=== PATIENT | female | born 1960 | race Caucasian/White ===

== ENCOUNTER 2017-02-18 10:09 | Emergency (ER) | payer BC, SELFPAY ==
[2017-02-18 10:23] VITALS: BP 151/90; PULSE 90; RESP 18; TEMP 36.8; O2SAT 98; BMI 24.0
--- NOTE | 2017-02-18 11:12 | HMH.EDUTC ---
[facility] [place] Clinical Impression: Hypokalemia Disposition: Still a Patient Condition on Discharge: Good Time of Disposition: 12:20 (transfer to ER) Medical Decision Making Vital Signs: 02/18/17 10:23 Temperature 98.2 F Temperature Source Oral Pulse Rate [Left] 90 Respiratory Rate 18 Blood Pressure [Right Arm] 151/90 Blood Pressure Mean [Right Arm] 110 Blood Pressure Source [Right Arm] Automatic Cuff Blood Pressure Position [Right Arm] Sitting 02 Sat by Pulse Oximetry 98 Oxygen Delivery Method Room Air - Lab Data Lab Results 02/18/17 11:45: WBC 4.2 L, RBC 4.49, Hgb 13.9, Hct 41.7, MCV 92.7, MCH 30.9, MCHC 33.4, RDW 15.5, Plt Count 101 L, MPV 8.2, Neut % (Auto) 62.7, Lymph % (Auto) 29.6, Early % (Auto) 6.6, Eos % (Auto) 0.8, Baso % (Auto) 0.2, Neut # (Auto) 2.7, Lymph # (Auto) 1.3, Early # (Auto) 0.3, Eos # (Auto) 0.0, Baso # (Auto) 0.0 02/18/17 11:45: Sodium 138, Potassium 2.9 L*, Chloride 102, Carbon Dioxide 28, Anion Gap 10.9, BUN 9, Creatinine 0.73, Estimated Creat Clear 87, Estimated GFR > 60, Est GFR ( Amer) > 60, Glucose 125 H Result diagrams: 02/18/17 11:45 02/18/17 11:45 - Radiology Data #1 Image(s): Chest Image Reviewed: Yes I have reviewed radiologist's interpretation Preliminary Findings: Normal/NAD - Physician Consults Physician Consulted: Dr. Saenz, ER Time: 12:17 Reason -: Pt condition (transfer to ER) Comment/Response: Spoke to Dr. Saenz. Willing to evaluate further in ER. Bed 10 available. Pt assisted over by Juliana [facility] micaela - Abiel Inquiry Pt receiving controlled substance: No [facility] [place] - General Stated complaint: SOA Time Seen by Provider: 02/18/17 11:12 Mode of Arrival: Ambulatory Source of Information: Patient Limitations: No Limitations Description of Symptoms (Recalled from Triage Doc. by RN): COUGH, CONGESTION X1 WK HEENT Symptoms (Recalled from RN notes): Yes Resp Symptoms (Recalled from RN notes): No Skin Symptoms (Recalled from RN notes): No MS Symptoms (Recalled from RN notes): No Functional Status (Recalled from RN notes): N - History of Present Illness Provider Complaint: c/o persistant nausea and diarrhea x 1 week and now cough w/ pain in left side of chest. I hope I haven't developed pneumonia . Nonsmoker. Nonprod cough. Reports vomiting has improved but persistant nausea. Difficulty keeping down jello and soup at times still. Diarrhea watery and 5-6 times a day. No blood or mucous. Denies SOA although previously documented. No treatment prior to arrival - Related Data Home Medications Medication Instructions Recorded Confirmed Gabapentin [Gabapentin 400mg Cap] 400 % PO DAILY 02/18/17 02/18/17 Loratadine [Claritin 10mg Tablet] 10 % PO DAILY 02/18/17 02/18/17 Omeprazole [Omeprazole 20mg 20 % PO AC 02/18/17 02/18/17 Capsule] Tramadol HCl [Ultram 50mg Take 0 % PO DAILY 02/18/17 02/18/17 Home Pack (10)] Allergies Allergy/AdvReac Type Severity Reaction Status Date / Time erythromycin base Allergy Unknown Unverified 02/02/17 15:31 [ERYTHROMYCIN BASE] Tetracyclines AdvReac Mild KNOT IN Unverified 02/02/17 15:31 STOMACH - Worker's Comp Is this a Worker's Comp case?: Yes [facility] History I have reviewed the patient's past medical history: Yes Medical History: Reports:: Asthma, Deep Vein Thrombosis, Gastroesophageal Reflux Disease Other Surgeries: Yes: Hysterectomy-Partial, Tubal Ligation - *Social History Smoking Status: Never smoker Alcohol Intake: never - Psychiatric History Expresses thoughts of harming self/others: None Suicide Plan Description: No Plan *Family Hx:: No significant family history ROS Obtained: Yes All systems reviewed & no additional complaints except as noted - Constitutional Reports anorexia, Reports chills, Reports fatigue, Denies body ache(s), Denies fever(s) - Eyes Denies change in vision - ENT Denies ear discharge, Denies ear pain, Denies nasal congestion, Denies nasal d
--- NOTE | 2017-02-18 11:17 | XR_ITS ---
XR chest 2V HISTORY: ITS.REASON: cough and chest tightness ORDERING PHYSICIAN: Barrera Pham PATIENT AGE: 56 years COMPARISON: 03/25/2016 FINDINGS: The cardiomediastinal silhouette and pulmonary vascularity are within normal limits. The lungs are clear without infiltrates, suspicious nodules, or pleural effusions. No acute bony abnormalities. IMPRESSION: Negative chest, no acute finding
[2017-02-18 11:58] LABS: Anion Gap 10.9 mEq/L (5-15); Blood Urea Nitrogen 9 mg/dL (7-18); Carbon Dioxide 28 mmol/L (21.0-32.0); Chloride 102 mmol/L (98-107); Creatinine Clearance Estimated 87 mg/ml (0-300); Creatinine,Serum 0.73 mg/dL (0.55-1.02); Estimated Glomerular Filt Rate > 60 ml/min (>60); GFR (African American) > 60 ML/MIN (>60); Glucose 125 mg/dL (74-106); Sodium 138 mmol/L (136-145)
[2017-02-18 12:01] LABS: Potassium 2.9 mmoL/L (3.5-5.1)
[2017-02-18 12:11] LABS: Basophils % 0.2 % (0.1-2.0); Eosinophils % 0.8 % (0.1-12.0); Hematocrit 41.7 % (37.0-47.0); Hemoglobin 13.9 g/dL (12.2-16.2); Lymphocytes # 1.3 K/mm3 (0.7-4.5); Lymphocytes % 29.6 K/mm3 (10-50); Mean Corpuscular HGB Conc 33.4 g/dL (31.8-35.4); Mean Corpuscular Hemoglobin 30.9 pg (27.0-31.2); Mean Corpuscular Volume 92.7 fl (81-99); Mean Platelet Volume 8.2 fl (7.4-10.4); Monocytes # 0.3 K/mm3 (0.1-1.0); Monocytes % 6.6 % (1.7-9.3); Neutrophils # 2.7 K/mm3 (1.8-7.8); Neutrophils % 62.7 % (37.0-80.0); Platelet Count 101 K/mm3 (142-424); Red Blood Count 4.49 M/mm3 (4.20-5.40); Red Cell Distribution Width 15.5 % (11.5-17.5); White Blood Count 4.2 K/mm3 (4.8-10.8)
[2017-02-18 12:40] VITALS: BP 155/98; PULSE 89; RESP 18; TEMP 36.9; O2SAT 98; BMI 24.0
--- NOTE | 2017-02-18 13:59 | HMH.EDNVD ---
ED Disposition Clinical Impression: Hypokalemia, Atypical chest pain, Diarrhea, Gastroenteritis Disposition: Home, Self-Care Condition on Discharge: Good Instructions: DI for Diarrhea and Traveler's Diarrhea -- Adult Additional Instructions: See your family practitioner to recheck potassium level, push Gatorade, cardiac work up looks good today and we replaced potassium by mouth. Recommend Imodium over the counter as needed for diarrhea. Referrals: Roger Soto MD [Primary Care Provider] - Time of Disposition: 15:48 - Critical Care Critical Care Time: No Attestation: On 02/18/17, the high probability of a clinically significant, sudden or life threatening deterioration of the following system(s) required my full and direct attention, intervention and personal management. The time I documented below is in addition to time spent performing reported procedures but includes the following listed in this critical care notation. Medical Decision Making Vital Signs: 02/18/17 10:23 02/18/17 12:40 Temperature 98.2 F 98.4 F Temperature Source Oral Oral Pulse Rate [Left] 90 89 Respiratory Rate 18 18 Blood Pressure [Right Arm] 151/90 155/98 Blood Pressure Mean [Right Arm] 110 117 Blood Pressure Source [Right Arm] Automatic Cuff Automatic Cuff Blood Pressure Position [Right Arm] Sitting Sitting 02 Sat by Pulse Oximetry 98 98 Oxygen Delivery Method Room Air Room Air - Lab Data Lab results reviewed: Yes: I reviewed the patient's lab results. Lab Results 02/18/17 11:45: WBC 4.2 L, RBC 4.49, Hgb 13.9, Hct 41.7, MCV 92.7, MCH 30.9, MCHC 33.4, RDW 15.5, Plt Count 101 L, MPV 8.2, Neut % (Auto) 62.7, Lymph % (Auto) 29.6, [place] % (Auto) 6.6, Eos % (Auto) 0.8, Baso % (Auto) 0.2, Neut # (Auto) 2.7, Lymph # (Auto) 1.3, [place] # (Auto) 0.3, Eos # (Auto) 0.0, Baso # (Auto) 0.0 02/18/17 11:45: Sodium 138, Potassium 2.9 L*, Chloride 102, Carbon Dioxide 28, Anion Gap 10.9, BUN 9, Creatinine 0.73, Estimated Creat Clear 87, Estimated GFR > 60, Est GFR ( Amer) > 60, Glucose 125 H 02/18/17 11:45: Troponin I < 0.02 Result diagrams: 02/18/17 11:45 02/18/17 11:45 Orders (Tests/Meds): ED MEDICATIONS Discontinued Medications Generic Name Dose Route Start Last Admin Trade Name Freq PRN Reason Stop Dose Admin Sodium Chloride 1,000 mls @ 999 mls/hr 02/18/17 13:30 02/18/17 13:21 Sod Chloride 0.9% 1000ml Bag IV 02/18/17 14:30 999 mls/hr .Q1H1M FLORIN Administration Ondansetron HCl 4 mg 02/18/17 13:18 02/18/17 13:21 Zofran 4mg/2ml Vial IV 02/18/17 13:19 4 mg ONCE ONE Administration Potassium Chloride/Water 20 meq 02/18/17 13:30 Potassium Chloride 20meq/100ml Ivpb IV 02/18/17 13:31 ONCE ONE Potassium replaced IV and EKG checked. Noted to be normal. Troponin normal - Radiology Data #1 Image(s): Chest Image Reviewed: Yes I reviewed the patient's radiology results, Yes I have reviewed radiologist's interpretation Preliminary Findings: Normal/NAD, No Infiltrates Seen, Normal Lung Inflation Rudolph - ECG Data Tracing #1 NSR nl QTc occ APC no ST changes noted no hypertrophy. T waves normal with K at 2.9 - Abiel Inquiry Pt receiving controlled substance: No Nausea/Vomiting/Diarrhea HPI - General Chief complaint: Nausea/Vomiting/Diarrhea Stated complaint: SOA Time Seen by Provider: 02/18/17 11:12 Mode of Arrival: Ambulatory Source of Information: Patient Limitations: No Limitations Description of Symptoms (Recalled from ER Triage Doc. by RN): COUGH, CONGESTION X1 WK - History of Present Illness HPI Narrative: Patient states that 8 days ago she had vomiting which lasted 4 days. It was followed by diarrhea, which she has had for 4 days. She has a history of hypokalemia, and is not currently taking potassium as she is out. She also reports some very mild left-sided chest pain 3 days ago and none today. He has had a little bit of congestion. Fever today. No blood from a
--- NOTE | 2017-02-18 14:03 | ED_ITS ---
ED Disposition Clinical Impression: Hypokalemia, Atypical chest pain, Diarrhea, Gastroenteritis Disposition: Home, Self-Care Condition on Discharge: Good Instructions: DI for Diarrhea and Traveler's Diarrhea -- Adult Additional Instructions: See your family practitioner to recheck potassium level, push Gatorade, cardiac work up looks good today and we replaced potassium by mouth. Recommend Imodium over the counter as needed for diarrhea. Referrals: Roger Soto MD [Primary Care Provider] - Time of Disposition: 15:48 - Critical Care Critical Care Time: No Attestation: On 02/18/17, the high probability of a clinically significant, sudden or life threatening deterioration of the following system(s) required my full and direct attention, intervention and personal management. The time I documented below is in addition to time spent performing reported procedures but includes the following listed in this critical care notation. Medical Decision Making Vital Signs: 02/18/17 10:23 02/18/17 12:40 Temperature 98.2 F 98.4 F Temperature Source Oral Oral Pulse Rate [Left] 90 89 Respiratory Rate 18 18 Blood Pressure [Right Arm] 151/90 155/98 Blood Pressure Mean [Right Arm] 110 117 Blood Pressure Source [Right Arm] Automatic Cuff Automatic Cuff Blood Pressure Position [Right Arm] Sitting Sitting 02 Sat by Pulse Oximetry 98 98 Oxygen Delivery Method Room Air Room Air - Lab Data Lab results reviewed: Yes: I reviewed the patient's lab results. Lab Results 02/18/17 11:45: WBC 4.2 L, RBC 4.49, Hgb 13.9, Hct 41.7, MCV 92.7, MCH 30.9, MCHC 33.4, RDW 15.5, Plt Count 101 L, MPV 8.2, Neut % (Auto) 62.7, Lymph % (Auto ) 29.6, Saline % (Auto) 6.6, Eos % (Auto) 0.8, Baso % (Auto) 0.2, Neut # (Auto) 2.7, Lymph # (Auto) 1.3, Saline # (Auto) 0.3, Eos # (Auto) 0.0, Baso # (Auto) 0.0 02/18/17 11:45: Sodium 138, Potassium 2.9 L*, Chloride 102, Carbon Dioxide 28, Anion Gap 10.9, BUN 9, Creatinine 0.73, Estimated Creat Clear 87, Estimated GFR > 60, Est GFR ( Amer) > 60, Glucose 125 H 02/18/17 11:45: Troponin I < 0.02 Result diagrams: 02/18/17 11:45 02/18/17 11:45 Orders (Tests/Meds): ED MEDICATIONS Discontinued Medications Generic Name Dose Route Start Last Admin Trade Name Freq PRN Reason Stop Dose Admin Sodium Chloride 1,000 mls @ 999 mls/hr 02/18/17 13:30 02/18/17 13:21 Sod Chloride 0.9% 1000ml Bag IV 02/18/17 14:30 999 mls/hr .Q1H1M FLORIN Administration Ondansetron HCl 4 mg 02/18/17 13:18 02/18/17 13:21 Zofran 4mg/2ml Vial IV 02/18/17 13:19 4 mg ONCE ONE Administration Potassium Chloride/Water 20 meq 02/18/17 13:30 Potassium Chloride 20meq/100ml Ivpb IV 02/18/17 13:31 ONCE ONE Potassium replaced IV and EKG checked. Noted to be normal. Troponin normal - Radiology Data #1 Image(s): Chest Image Reviewed: Yes I reviewed the patient's radiology results, Yes I have reviewed radiologist's interpretation Preliminary Findings: Normal/NAD, No Infiltrates Seen, Normal Lung Inflation Rudolph - ECG Data Tracing #1 NSR nl QTc occ APC no ST changes noted no hypertrophy. T waves normal with K at 2.9 - Abiel Inquiry Pt receiving controlled substance: No Nausea/Vomiting/Diarrhea HPI - General Chief complaint: Nausea/Vomiting/Diarrhea Stated complaint: SOA Time Seen by Provider:
[2017-02-18 15:15] LABS: Troponin I < 0.02 ng/ml (0.00-0.06)
[2017-02-18 16:03] VITALS: BP 128/78; PULSE 82; RESP 18; TEMP 37; O2SAT 96
== END 2017-02-18 16:05 | disposition home or self-care (01) ==
LOC: UTC 12:25 → ER 12:32
PROVIDERS: Nurse Practitioner Family; Emergency Provider Emergency Medicine; Family Provider Physician Assistant; PCP Emergency Medicine
DX: K52.9 Noninfective gastroenteritis and colitis, unspecified (principal); E87.6 Hypokalemia; K21.9 Gastro-esophageal reflux disease without esophagitis; J45.909 Unspecified asthma, uncomplicated; Z88.1 Allergy status to other antibiotic agents
CPT/HCPCS: 36415; 71046; 80048; 84484; 85025; 93005; 93041; 96367; 96375; 99283; J2405

== ENCOUNTER → 2017-03-10 11:13 | Outpatient (REF) | payer BC, SELFPAY ==
[2017-03-10 13:57] LABS: Anion Gap 15.5 mEq/L (5-15); Blood Urea Nitrogen 14 mg/dL (7-18); Carbon Dioxide 26 mmol/L (21.0-32.0); Chloride 101 mmol/L (98-107); Creatinine,Serum 0.69 mg/dL (0.55-1.02); Estimated Glomerular Filt Rate 88 ml/min (>60); GFR (African American) 107 ML/MIN (>60); Sodium 139 mmol/L (136-145)
[2017-03-10 14:35] LABS: Glucose 129 mg/dL (74-106)
[2017-03-10 14:41] LABS: Potassium 3.5 mmoL/L (3.5-5.1)
== END ==
LOC: LAB 11:13
PROVIDERS: Visit Provider Physician Assistant
DX: E87.6 Hypokalemia (principal)
CPT/HCPCS: 80048

== ENCOUNTER → 2017-03-17 08:14 | Outpatient (CLI) | payer BC, SELFPAY ==
--- NOTE | 2017-03-17 08:21 | US_ITS ---
US gallbladder HISTORY: Vomiting, right upper quadrant pain ITS.REASON: RUQ pain ORDERING PHYSICIAN: Teo John MD PATIENT AGE: 56 years COMPARISON: None FINDINGS: PANCREAS: Unremarkable. No obvious mass or abnormal fluid collection. No ductal dilatation LIVER: No focal liver lesions demonstrated. Homogeneous echogenicity. No intrahepatic biliary ductal dilatation evident RIGHT KIDNEY: Unremarkable. Normal size and echogenicity. No hydronephrosis GALLBLADDER: No gallstones, gallbladder wall thickening, pericholecystic fluid, or biliary dilatation. IMPRESSION: Negative gallbladder/right upper quadrant ultrasound
== END ==
PROVIDERS: PCP Physician Assistant; Visit Provider Surgery
DX: K80.20 Calculus of gallbladder without cholecystitis without obstruction (principal)
CPT/HCPCS: 76705

== ENCOUNTER 2017-04-05 18:33 | Emergency (ER) | payer BC, SELFPAY ==
[2017-04-05 18:35] VITALS: BP 163/112; PULSE 129; RESP 20; O2SAT 97; BMI 24.0
--- NOTE | 2017-04-05 18:43 | PC.ADMIT ---
[id number] [facility] Admission Note: The patient,Brina Berg,56 y/o, was given written information regarding hospital policies, unit procedures and contact persons. Patient's smoking status: Never smoker.
--- NOTE | 2017-04-05 18:51 | HMH.EDGENADL ---
ED Disposition Condition on Discharge: Fair Time of Disposition: 20:25 - Critical Care Critical Care Time: No <Kandis Moe - Last Filed: 04/05/17 20:23> <Roger Soto - Last Filed: 04/05/17 21:09> Clinical Impression: Acute pancreatitis due to calculus of common bile duct Cholelithiasis Qualifiers: Cholelithiasis location: gallbladder and bile duct Cholecystitis presence: with cholecystitis Cholecystitis acuity: acute Biliary obstruction: without biliary obstruction Qualified Code(s): K80.62 - Calculus of gallbladder and bile duct with acute cholecystitis without obstruction Disposition: Xfer Critical Access Hosp Additional Instructions: Discussed with pt the need to transfer and accepted at [facility] and discussed with dr padilla and dr clarke Referrals: Wendy Diaz PA [Primary Care Provider] - Attestation: On 04/05/17, the high probability of a clinically significant, sudden or life threatening deterioration of the following system(s) required my full and direct attention, intervention and personal management. The time I documented below is in addition to time spent performing reported procedures but includes the following listed in this critical care notation. Medical Decision Making - Medical Records Medical records reviewed: Yes: I reviewed the patient's medical records. - Lab Data Lab results reviewed: Yes: I reviewed the patient's lab results. Result diagrams: 04/05/17 18:30 04/05/17 18:30 - CT Data CT Scan: Abdomen, Pelvis Time Received: 19:[address] Reviewed: Yes: I have reviewed the patient's CT results, I discussed the CT results w/the radiologist, I have viewed the radiologist's interpretation - Abiel Inquiry Pt receiving controlled substance: Yes Abiel was queried for this patient: No Reason not queried -: Emergent pt cond-no time Risks and benefits of using a controlled substance: were discussed with pt by me <Kandis Moe - Last Filed: 04/05/17 20:23> - Lab Data Result diagrams: 04/05/17 18:30 04/05/17 18:30 <Roger Soto - Last Filed: 04/05/17 21:09> Vital Signs: 04/05/17 18:35 04/05/17 19:49 04/05/17 21:00 Temperature 99.8 F H 98.9 F Temperature Source Oral Oral Pulse Rate [Right Radial] 129 H 125 H 130 H Respiratory Rate 20 20 20 Blood Pressure [Right Arm] 163/112 137/69 129/63 Blood Pressure Mean [Right Arm] 129 91 85 Blood Pressure Source [Right Arm] Automatic Cuff Automatic Cuff Automatic Cuff Blood Pressure Position [Right Arm] Supine Supine Supine 02 Sat by Pulse Oximetry 97 97 96 Oxygen Delivery Method Room Air Room Air Room Air - Lab Data Lab Results 04/05/17 18:30: WBC 11.0 H, RBC 5.27, Hgb 16.8 H, Hct 48.7 H, MCV 92.3, MCH 31.8 H, MCHC 34.5, RDW 16.0, Plt Count 167, MPV 8.5, Neut % (Auto) 85.5 H, Lymph % (Auto) 8.5 L, [place] % (Auto) 5.8, Eos % (Auto) 0.2, Baso % (Auto) 0.0 L, Neut # (Auto) 9.4 H, Lymph # (Auto) 0.9, [place] # (Auto) 0.6, Eos # (Auto) 0.0, Baso # (Auto) 0.0, Total Counted 100, Neutrophils % (Manual) 86 H, Band Neutrophils % 2.0, Lymphocytes % (Manual) 8 L, Monocytes % (Manual) 3, Metamyelocytes % 1.0, Platelet Estimate Normal, RBC Morphology Normal 04/05/17 18:30: Sodium 135 L, Potassium 3.7, Chloride 96 L, Carbon Dioxide 22, Anion Gap 20.7 H, BUN 16, Creatinine 1.13 H, Estimated Creat Clear 56, Estimated GFR 50 L, Est GFR ( Amer) 60, Glucose 187 H, Calcium 8.1 L, Total Bilirubin 1.2 H, AST 126 H, ALT 62, Alkaline Phosphatase 118 H, Total Protein 7.9, Albumin 4.1, Globulin 3.8 H, Albumin/Globulin Ratio 1.1, Amylase 406 H*, Lipase 6496 H Orders (Tests/Meds): ED MEDICATIONS Discontinued Medications Generic Name Dose Route Start Last Admin Trade Name Freq PRN Reason Stop Dose Admin Sodium Chloride 1,000 mls @ 999 mls/hr 04/05/17 19:00 04/05/17 18:54 Sod Chlor 0.9% 1000ml Bag IV 04/05/17 20:00 999 mls/hr .Q1H1M FLORIN Administration Sodium Chloride 1,000 mls @ 999 mls/hr 04/05/17 20:00
--- NOTE | 2017-04-05 18:51 | CT_ITS ---
CT abdomen pelvis wo con Ordering Physician: Kandis Moe MD HISTORY: ITS.REASON: abdominal pain Severe abdominal pain. Generalized.. Age: 56 years: Female TECHNIQUE: Helical CT scanning performed through abdomen and pelvis. No oral nor IV contrast utilized. Sagittal axial coronal reconstructions on CT workstation COMPARISON :Previous CT abdomen and pelvis 11-29. FINDINGS Lung bases, clear. Heart normal size Abdomen/pelvis. Lack of oral and IV contrast decreases sensitivity. Prominent acute pancreatitis findings... Prominent stranding and fluid extends from the margins of the enlarged edematous appearing pancreas. There is focal fluid collection lateral to the tail the pancreas and overlying the left kidney, with fluid outlining Gerota's fascia and extending along the left paracolic gutter.. Edema & inflammatory fluid seen throughout the root of the mesentery Fluid is seen tracking anteriorly through mesentery with generous focal fluid collection overlying the omentum RUQ abdomen,. This irregular focal fluid collection overlies the hepatic flexure right colon (axial image 62.) & measuring 5.2cm transverse x 2.1 cm & over AP 4.6 cm height.... At this point would attribute to phlegmonous inflammatory fluid collection but will require follow-up to exclude developing pseudocyst. Doubt hemorrhage focus given its density Fluid is seen extending to Morison's pouch overlying the right Gerota's fascia extending along the right paracolic gutter. Fluid also seen particularly evident medial to the gallbladder and surrounding gallbladder neck. Thickened appearance of descending duodenum.. Minimal fluid posterior pelvis/pelvic basin Liver. No focal lesions. No biliary ductal dilatation. Diffuse fatty infiltration of liver with mild hepatomegaly. Small 9 mm hepatic cyst medial right lobe. No change and Stable since 2015.q . Vague low-density inferior margin of the liver, just anterior to the gallbladder fossa is a stable feature since 2015 as well. Small cyst or focal fatty change. Gallbladder. Hydropic Distended somewhat tense appearing gallbladder. Again note the fluid most evident about the medial medial aspect & most likely related to the pancreatitis. . Large bowel. There is some wall thickening of the transverse colon particularly towards the hepatic flexure which may reflect the generalized regional inflammation.. May be a few diverticula in sigmoid colon no diverticulitis. Appendix visualized and normal posterior to the right colon .. Small bowel with scattered air-fluid levels and generous fluid., MayReflect ileus Kidneys. No obstruction. Small stable calculus midportion left kidney. Less than 3 mm size possible fat-containing right inguinal hernia no bowel loops. No inflammation here otherwise. IMPRESSION: 1. Severe appearing ACUTE PANCREATITIS. Diffuse edematous appearing pancreas, with irregular margin & stranding into fat surrounding pancreas Fluid extends from pancreas, with focal fluid collection along left paracolic gutter. Minimal fluid pelvis basin. Inflammatory stranding throughout the mesentery with fluid collecting along Morison's pouch. Generous fluid surrounding the neck of the gallbladder. Edematous changes throughout the mesentery. Additional notable focal irregular fluid collection, anterior RUQ, anterior to hepatic flexure. Most likely phlegmonous inflammatory fluid collection. This warrants follow-up to evaluate for possible developing pseudocyst. 2. Distended hydropic appearing gallbladder. Appears merely be secondary to pancreatic inflammation. , But will require follow-up to evaluate for cholecystitis or a calculus cholecystitis 3. Other observations in text
--- NOTE | 2017-04-05 18:56 | ED_ITS ---
ED Disposition Condition on Discharge: Fair Time of Disposition: 20:25 - Critical Care Critical Care Time: No <Kandis Moe - Last Filed: 04/05/17 20:23> <Roger Soto - Last Filed: 04/05/17 21:09> Clinical Impression: Acute pancreatitis due to calculus of common bile duct Cholelithiasis Qualifiers: Cholelithiasis location: gallbladder and bile duct Cholecystitis presence: with cholecystitis Cholecystitis acuity: acute Biliary obstruction: without biliary obstruction Qualified Code(s): K80.62 - Calculus of gallbladder and bile duct with acute cholecystitis without obstruction Disposition: Xfer Critical Access Hosp Additional Instructions: Discussed with pt the need to transfer and accepted at [facility] and discussed with dr padilla and dr clarke Referrals: Wendy Diaz PA [Primary Care Provider] - Attestation: On 04/05/17, the high probability of a clinically significant, sudden or life threatening deterioration of the following system(s) required my full and direct attention, intervention and personal management. The time I documented below is in addition to time spent performing reported procedures but includes the following listed in this critical care notation. Medical Decision Making - Medical Records Medical records reviewed: Yes: I reviewed the patient's medical records. - Lab Data Lab results reviewed: Yes: I reviewed the patient's lab results. Result diagrams: 04/05/17 18:30 04/05/17 18:30 - CT Data CT Scan: Abdomen, Pelvis Time Received: 19:[address] Reviewed: Yes: I have reviewed the patient's CT results, I discussed the CT results w/the radiologist, I have viewed the radiologist's interpretation - Abiel Inquiry Pt receiving controlled substance: Yes Abiel was queried for this patient: No Reason not queried -: Emergent pt cond-no time Risks and benefits of using a controlled substance: were discussed with pt by me <Kandis Moe - Last Filed: 04/05/17 20:23> - Lab Data Result diagrams: 04/05/17 18:30 04/05/17 18:30 <Roger Soto - Last Filed: 04/05/17 21:09> Vital Signs: 04/05/17 18:35 04/05/17 19:49 04/05/17 21:00 Temperature 99.8 F H 98.9 F Temperature Source Oral Oral Pulse Rate [Right Radial] 129 H 125 H 130 H Respiratory Rate 20 20 20 Blood Pressure [Right Arm] 163/112 137/69 129/63 Blood Pressure Mean [Right Arm] 129 91 85 Blood Pressure Source [Right Arm] Automatic Cuff Automatic Cuff Automatic Cuff Blood Pressure Position [Right Arm] Supine Supine Supine 02 Sat by Pulse Oximetry 97 97 96 Oxygen Delivery Method Room Air Room Air Room Air - Lab Data Lab Results 04/05/17 18:30: WBC 11.0 H, RBC 5.27, Hgb 16.8 H, Hct 48.7 H, MCV 92.3, MCH 31.8 H, MCHC 34.5, RDW 16.0, Plt Count 167, MPV 8.5, Neut % (Auto) 85.5 H, Lymph % (Auto) 8.5 L, [place] % (Auto) 5.8, Eos % (Auto) 0.2, Baso % (Auto) 0.0 L, Neut # (Auto) 9.4 H, Lymph # (Auto) 0.9, [place] # (Auto) 0.6, Eos # (Auto) 0.0, Baso # (Auto) 0.0, Total Counted 100, Neutrophils % (Manual) 86 H, Band Neutrophils % 2.0, Lymphocytes % (Manual) 8 L, Monocytes % (Manual) 3, Metamyelocytes % 1.0, Platelet Estimate Normal, RBC Morphology Normal 04/05/17 18:30: Sodium 135 L, Potassium 3.7, Chloride 96 L, Carbon Dioxide 22, Anion Gap 20.7 H, BUN 16, Creatinine 1.13 H, Estimated Creat Clear 56, Estimated GFR 50 L, Est GFR ( Amer) 60, Glucose 187 H, Calcium 8.1 L, Total Bilirubin 1.2 H, AST 126 H, ALT 62, Alkaline Phosphatase 118 H, Total
[2017-04-05 18:59] LABS: Eosinophils % 0.2 % (0.1-12.0); Hematocrit 48.7 % (37.0-47.0); Hemoglobin 16.8 g/dL (12.2-16.2); Lymphocytes # 0.9 K/mm3 (0.7-4.5); Lymphocytes % 8.5 K/mm3 (10-50); Mean Corpuscular HGB Conc 34.5 g/dL (31.8-35.4); Mean Corpuscular Hemoglobin 31.8 pg (27.0-31.2); Mean Corpuscular Volume 92.3 fl (81-99); Mean Platelet Volume 8.5 fl (7.4-10.4); Monocytes # 0.6 K/mm3 (0.1-1.0); Monocytes % 5.8 % (1.7-9.3); Neutrophils # 9.4 K/mm3 (1.8-7.8); Neutrophils % 85.5 % (37.0-80.0); Platelet Count 167 K/mm3 (142-424); Red Blood Count 5.27 M/mm3 (4.20-5.40)
[2017-04-05 19:01] LABS: MANUAL DIFFERENTIAL MANUAL DIFFERENTIAL (MANUAL DIFF)
[2017-04-05 19:07] LABS: Alanine Aminotransferase 62 U/L (12-78); Albumin Level 4.1 gm/dL (3.4-5.0); Albumin/Globulin Ratio 1.1 (1.1-1.8); Alkaline Phosphatase 118 U/L (46-116); Amylase 406 U/L (25-125); Anion Gap 20.7 mEq/L (5-15); Bilirubin,Total 1.2 mg/dL (0.2-1.0); Blood Urea Nitrogen 16 mg/dL (7-18); Calcium 8.1 mg/dL (8.5-10.1); Carbon Dioxide 22 mmol/L (21.0-32.0); Chloride 96 mmol/L (98-107); Creatinine Clearance Estimated 56 mL/min (0-300); Creatinine,Serum 1.13 mg/dL (0.55-1.02); Estimated Glomerular Filt Rate 50 ml/min (>60); GFR (African American) 60 ML/MIN (>60); Globulin 3.8 gm/dl (1.3-3.2); Glucose 187 mg/dL (74-106); Lipase 6496 u/L (73-393); Sodium 135 mmol/L (136-145); Total Protein,Serum 7.9 gm/dL (6.4-8.2)
[2017-04-05 19:08] LABS: Aspartate Amino Transferase 126 U/L (15-37); Potassium 3.7 mmoL/L (3.5-5.1)
[2017-04-05 19:49] VITALS: BP 137/69; PULSE 125; RESP 20; TEMP 37.7; O2SAT 97
[2017-04-05 20:00] LABS: Lymphocytes % 8 % (10-50); Monocytes % 3 % (2-9); Neutrophils % 86 % (42-76); Platelet Estimate Normal; Total Cells Counted 100
[2017-04-05 20:01] LABS: RBC Morphology Normal
--- NOTE | 2017-04-05 20:36 | XR_ITS ---
XR KUB CLINICAL INDICATION: Evaluate NG tube placement ITS.REASON: NG tube ORDERING PHYSICIAN: Kandis Moe MD PATIENT AGE: 56 years COMPARISON: None FINDINGS: Nasogastric tube tip is in region of the body the stomach. There are gas-filled loops of small and large bowel. IMPRESSION: NG tube tip in region of the body the stomach
--- NOTE | 2017-04-05 20:54 | PC.NURSE ---
Addendum entered by Ellie Wiseman RN 04/05/17 21:00: Original Note: DR MONTAÑO ACCEPTED FROM [facility] FOR PATIENT TRANSFER.
--- NOTE | 2017-04-05 20:56 | PC.NURSE ---
Addendum entered by Ellie Wiseman RN 04/05/17 21:00: [facility] AGREED TO ACCEPT TRANSFER OF PATIENT Original Note: DR LUJAN ON PHONE WITH DR ROCHA
--- NOTE | 2017-04-05 20:57 | PC.NURSE ---
16 German NG inserted at bedside by Dr. Moe at 2030
[2017-04-05 21:00] VITALS: BP 129/63; PULSE 130; RESP 20; TEMP 37.2; O2SAT 96
--- NOTE | 2017-04-05 21:43 | PC.NURSE ---
Pt requested to be sent to [facility]. [facility] accepted pt.
[2017-04-05 21:54] VITALS: BP 129/63; PULSE 130; RESP 20; TEMP 37.2; O2SAT 96
[2017-04-05 22:13] VITALS: BP 129/63; PULSE 130; RESP 20; TEMP 37.2; O2SAT 96
== END 2017-04-05 22:13 | disposition critical access hospital (66) ==
PROVIDERS: Emergency Provider General Practice; Family Provider Physician Assistant; PCP Physician Assistant
DX: K80.62 Calculus of gallbladder and bile duct with acute cholecystitis without obstruction (principal); K85.80 Other acute pancreatitis without necrosis or infection; J45.909 Unspecified asthma, uncomplicated; K21.9 Gastro-esophageal reflux disease without esophagitis; Z88.1 Allergy status to other antibiotic agents; Z79.899 Other long term (current) drug therapy
CPT/HCPCS: 43760; 74018; 74176; 80053; 82150; 83690; 85007; 85025; 96365; 96366; 96375; 96376; 99284; J2405

== ENCOUNTER → 2017-04-22 10:43 | Outpatient (REF) | payer BC, SELFPAY ==
[2017-04-22 16:58] LABS: White Blood Count 4.5 K/mm3 (4.8-10.8)
[2017-04-22 16:59] LABS: Hematocrit 40.8 % (37.0-47.0); Hemoglobin 12.7 g/dL (12.2-16.2); Red Blood Count 4.02 M/mm3 (4.20-5.40)
[2017-04-22 17:00] LABS: Basophils % 0.7 % (0.1-2.0); Eosinophils % 4.5 % (0.1-12.0); Lymphocytes # 1.4 K/mm3 (0.7-4.5); Lymphocytes % 31.5 K/mm3 (10-50); Mean Corpuscular HGB Conc 31.1 g/dL (31.8-35.4); Mean Corpuscular Hemoglobin 31.6 pg (27.0-31.2); Mean Corpuscular Volume 101.4 fl (81-99); Mean Platelet Volume 9.1 fl (7.4-10.4); Monocytes # 0.3 K/mm3 (0.1-1.0); Monocytes % 7.5 % (1.7-9.3); Neutrophils # 2.5 K/mm3 (1.8-7.8); Neutrophils % 55.8 % (37.0-80.0); Platelet Count 564 K/mm3 (142-424); Red Cell Distribution Width 15.6 % (11.5-17.5)
[2017-04-22 17:01] LABS: Eosinophils # 0.2 K/mm3 (0.0-0.4)
[2017-04-22 19:37] LABS: Alanine Aminotransferase 21 U/L (12-78); Alkaline Phosphatase 88 U/L (46-116); Amylase 99 U/L (25-125); Anion Gap 15.1 mEq/L (5-15); Aspartate Amino Transferase 19 U/L (15-37); Bilirubin,Total 0.2 mg/dL (0.2-1.0); Blood Urea Nitrogen 15 mg/dL (7-18); Calcium 10.2 mg/dL (8.5-10.1); Carbon Dioxide 29 mmol/L (21.0-32.0); Chloride 98 mmol/L (98-107); Chol/HDL Ratio 3.9 (1-3.5); Cholesterol 225 mg/dL (140-200); Creatinine,Serum 0.67 mg/dL (0.55-1.02); Estimated Glomerular Filt Rate 91 ml/min (>60); GFR (African American) 111 ML/MIN (>60); Globulin 3.9 gm/dl (1.3-3.2); Glucose 91 mg/dL (74-106); HDL Cholesterol 57 mg/dL (29-89); LDL Cholesterol 95 mg/dL (0-130); Sodium 136 mmol/L (136-145); T4 (Thyroxine) 7.2 ug/dl (4.7-13.3); Thyroid Stimulating Hormone 2.93 uIU/ml (0.358-3.740); Total Protein,Serum 7.9 gm/dL (6.4-8.2); Triglycerides 365 mg/dL (30-200); VLDL Cholesterol 73 mg/dL (0-40)
[2017-04-22 19:59] LABS: Lipase 653 u/L (73-393); Potassium 6.1 mmoL/L (3.5-5.1)
[2017-04-23 19:23] LABS: Vitamin D 25 Hydroxy 26.9 ng/mL (30.0-100.0)
== END ==
LOC: LAB 10:43
PROVIDERS: Visit Provider Physician Assistant
DX: K85.10 Biliary acute pancreatitis without necrosis or infection (principal)
CPT/HCPCS: 80053; 80061; 82150; 82652; 83690; 84436; 84443; 85025

== ENCOUNTER → 2017-04-26 15:13 | Outpatient (CLI) | payer BC, SELFPAY ==
[2017-04-26 16:09] LABS: Potassium 4.4 mmoL/L (3.5-5.1)
== END ==
PROVIDERS: Visit Provider Physician Assistant
DX: E87.5 Hyperkalemia (principal)
CPT/HCPCS: 36415; 84132

== ENCOUNTER → 2017-06-23 11:05 | Outpatient (REF) | payer BC, SELFPAY ==
[2017-06-23 14:06] LABS: Alanine Aminotransferase 26 U/L (12-78); Albumin Level 4.1 gm/dL (3.4-5.0); Albumin/Globulin Ratio 1.1 (1.1-1.8); Alkaline Phosphatase 82 U/L (46-116); Anion Gap 13.2 mEq/L (5-15); Aspartate Amino Transferase 27 U/L (15-37); Bilirubin,Total 0.3 mg/dL (0.2-1.0); Blood Urea Nitrogen 18 mg/dL (7-18); Calcium 9.5 mg/dL (8.5-10.1); Carbon Dioxide 30 mmol/L (21.0-32.0); Chloride 104 mmol/L (98-107); Creatinine,Serum 0.75 mg/dL (0.55-1.02); Estimated Glomerular Filt Rate 80 ml/min (>60); GFR (African American) 97 ML/MIN (>60); Globulin 3.9 gm/dl (1.3-3.2); Glucose 106 mg/dL (74-106); Potassium 5.2 mmoL/L (3.5-5.1); Sodium 142 mmol/L (136-145)
== END ==
LOC: LAB 11:05
PROVIDERS: Visit Provider Physician Assistant
DX: R53.83 Other fatigue (principal)
CPT/HCPCS: 80053

== ENCOUNTER → 2017-06-25 10:59 | Outpatient (CLI) | payer BC, SELFPAY | PROVIDERS: Visit Provider Emergency Medicine | DX: E87.5 Hyperkalemia (principal) | CPT/HCPCS: 36415; 84132 ==

== ENCOUNTER → 2017-09-22 16:11 | Outpatient (REF) | payer BC, SELFPAY ==
[2017-09-22 18:20] LABS: Basophils % 0.4 % (0.1-2.0); Eosinophils # 0.1 K/mm3 (0.0-0.4); Eosinophils % 1.6 % (0.1-12.0); Hematocrit 40.6 % (37.0-47.0); Hemoglobin 13.4 g/dL (12.2-16.2); Lymphocytes # 1.6 K/mm3 (0.7-4.5); Lymphocytes % 39.4 K/mm3 (10-50); Mean Corpuscular HGB Conc 32.9 g/dL (31.8-35.4); Mean Corpuscular Hemoglobin 29.9 pg (27.0-31.2); Mean Corpuscular Volume 90.9 fl (81-99); Mean Platelet Volume 7.9 fl (7.4-10.4); Monocytes # 0.3 K/mm3 (0.1-1.0); Neutrophils # 2.1 K/mm3 (1.8-7.8); Neutrophils % 50.5 % (37.0-80.0); Platelet Count 166 K/mm3 (142-424); Red Blood Count 4.47 M/mm3 (4.20-5.40); Red Cell Distribution Width 15.1 % (11.5-17.5); White Blood Count 4.1 K/mm3 (4.8-10.8)
[2017-09-22 20:43] LABS: Alanine Aminotransferase 27 U/L (12-78); Albumin Level 4.1 gm/dL (3.4-5.0); Albumin/Globulin Ratio 1.1 (1.1-1.8); Alkaline Phosphatase 90 U/L (46-116); Anion Gap 10.3 mEq/L (5-15); Aspartate Amino Transferase 18 U/L (15-37); Bilirubin,Total 0.3 mg/dL (0.2-1.0); Blood Urea Nitrogen 19 mg/dL (7-18); Calcium 9.6 mg/dL (8.5-10.1); Carbon Dioxide 30 mmol/L (21.0-32.0); Chloride 103 mmol/L (98-107); Creatinine,Serum 0.71 mg/dL (0.55-1.02); Estimated Glomerular Filt Rate 85 ml/min (>60); Free T4 (Free Thyroxine) 0.79 ng/dl (0.76-1.46); GFR (African American) 103 ML/MIN (>60); Globulin 3.6 gm/dl (1.3-3.2); Glucose 82 mg/dL (74-106); Potassium 4.3 mmoL/L (3.5-5.1); Sodium 139 mmol/L (136-145); Thyroid Stimulating Hormone 2.28 uIU/ml (0.358-3.740); Total Protein,Serum 7.7 gm/dL (6.4-8.2)
== END ==
LOC: LAB 16:11
PROVIDERS: Visit Provider Emergency Medicine
DX: R53.83 Other fatigue (principal)
CPT/HCPCS: 80053; 84439; 84443; 85025

== ENCOUNTER → 2017-12-21 13:15 | Outpatient (CLI) | payer BC, SELFPAY ==
[2017-12-21 13:33] LABS: Basophils % 0.6 % (0.1-2.0); Eosinophils # 0.1 K/mm3 (0.0-0.4); Eosinophils % 2.4 % (0.1-12.0); Hemoglobin 13.6 g/dL (12.2-16.2); Lymphocytes # 1.3 K/mm3 (0.7-4.5); Lymphocytes % 37.7 % (10-50); Mean Corpuscular HGB Conc 32.3 g/dL (31.8-35.4); Mean Corpuscular Hemoglobin 30.6 pg (27.0-31.2); Mean Corpuscular Volume 94.7 fl (81-99); Mean Platelet Volume 9.5 fl (7.4-10.4); Monocytes # 0.2 K/mm3 (0.1-1.0); Monocytes % 6.8 % (1.7-9.3); Neutrophils # 1.9 K/mm3 (1.8-7.8); Neutrophils % 52.6 % (37.0-80.0); Platelet Count 175 K/mm3 (142-424); Red Blood Count 4.43 M/mm3 (4.20-5.40); Red Cell Distribution Width 14.2 % (11.5-17.5); White Blood Count 3.5 K/mm3 (4.8-10.8)
[2017-12-21 14:24] LABS: Alanine Aminotransferase 26 U/L (12-78); Albumin Level 4.4 gm/dL (3.4-5.0); Albumin/Globulin Ratio 1.2 (1.1-1.8); Alkaline Phosphatase 75 U/L (46-116); Anion Gap 11.3 mEq/L (5-15); Aspartate Amino Transferase 24 U/L (15-37); Bilirubin,Total 0.4 mg/dL (0.2-1.0); Blood Urea Nitrogen 15 mg/dL (7-18); Carbon Dioxide 30 mmol/L (21.0-32.0); Chloride 104 mmol/L (98-107); Chol/HDL Ratio 2.5 (1-3.5); Cholesterol 241 mg/dL (140-200); Estimated Glomerular Filt Rate 103 ml/min (>60); GFR (African American) 125 ML/MIN (>60); Globulin 3.6 gm/dl (1.3-3.2); Glucose 85 mg/dL (74-106); HDL Cholesterol 98 mg/dL (29-89); LDL Cholesterol 122 mg/dL (0-130); Potassium 4.3 mmoL/L (3.5-5.1); Sodium 141 mmol/L (136-145); T4 (Thyroxine) 7.7 ug/dl (4.7-13.3); Thyroid Stimulating Hormone 3.86 uIU/ml (0.358-3.740); Triglycerides 103 mg/dL (30-200); VLDL Cholesterol 21 mg/dL (0-40)
[2017-12-22 12:41] LABS: Vitamin D 25 Hydroxy 30.4 ng/mL (30.0-100.0)
== END ==
PROVIDERS: PCP Physician Assistant; Visit Provider Physician Assistant
DX: M25.511 Pain in right shoulder (principal); M25.552 Pain in left hip; Z00.00 Encounter for general adult medical examination without abnormal findings; L40.50 Arthropathic psoriasis, unspecified; L40.9 Psoriasis, unspecified; G89.29 Other chronic pain
CPT/HCPCS: 80053; 80061; 82652; 84436; 84443; 85025

== ENCOUNTER → 2018-02-02 09:22 | Outpatient (CLI) | payer BC, SELFPAY ==
[2018-02-02 10:12] LABS: Basophils % 0.7 % (0.1-2.0); Eosinophils # 0.2 K/mm3 (0.0-0.4); Eosinophils % 3.6 % (0.1-12.0); Hematocrit 40.4 % (37.0-47.0); Hemoglobin 13.3 g/dL (12.2-16.2); Lymphocytes # 1.4 K/mm3 (0.7-4.5); Lymphocytes % 30.8 % (10-50); Mean Corpuscular HGB Conc 32.8 g/dL (31.8-35.4); Mean Corpuscular Hemoglobin 30.3 pg (27.0-31.2); Mean Corpuscular Volume 92.3 fl (81-99); Mean Platelet Volume 8.1 fl (7.4-10.4); Monocytes # 0.3 K/mm3 (0.1-1.0); Monocytes % 6.2 % (1.7-9.3); Neutrophils # 2.6 K/mm3 (1.8-7.8); Neutrophils % 58.7 % (37.0-80.0); Platelet Count 184 K/mm3 (142-424); Red Blood Count 4.38 M/mm3 (4.20-5.40); Red Cell Distribution Width 13.8 % (11.5-17.5); White Blood Count 4.5 K/mm3 (4.8-10.8)
[2018-02-02 12:01] LABS: Alanine Aminotransferase 36 U/L (12-78); Albumin Level 4.1 gm/dL (3.4-5.0); Albumin/Globulin Ratio 1.2 (1.1-1.8); Alkaline Phosphatase 80 U/L (46-116); Anion Gap 12.3 mEq/L (5-15); Aspartate Amino Transferase 22 U/L (15-37); Bilirubin,Total 0.6 mg/dL (0.2-1.0); Blood Urea Nitrogen 18 mg/dL (7-18); Calcium 9.4 mg/dL (8.5-10.1); Carbon Dioxide 29 mmol/L (21.0-32.0); Chloride 102 mmol/L (98-107); Chol/HDL Ratio 2.1 (1-3.5); Cholesterol 195 mg/dL (140-200); Creatinine,Serum 0.62 mg/dL (0.55-1.02); Estimated Glomerular Filt Rate 100 ml/min (>60); GFR (African American) 120 ML/MIN (>60); Globulin 3.4 gm/dl (1.3-3.2); Glucose 96 mg/dL (74-106); HDL Cholesterol 92 mg/dL (29-89); LDL Cholesterol 87 mg/dL (0-130); Potassium 4.3 mmoL/L (3.5-5.1); Sodium 139 mmol/L (136-145); Thyroid Stimulating Hormone 1.75 uIU/ml (0.358-3.740); Total Protein,Serum 7.5 gm/dL (6.4-8.2); Triglycerides 78 mg/dL (30-200); VLDL Cholesterol 16 mg/dL (0-40)
== END ==
PROVIDERS: PCP Physician Assistant; Visit Provider Physician Assistant
DX: E78.5 Hyperlipidemia, unspecified (principal); R79.89 Other specified abnormal findings of blood chemistry
CPT/HCPCS: 36415; 80053; 80061; 84443; 85025

== ENCOUNTER → 2018-03-22 18:22 | Outpatient (CLI) | payer BC, SELFPAY ==
[2018-03-22 19:02] LABS: Basophils % 0.4 % (0.1-2.0); Eosinophils # 0.1 K/mm3 (0.0-0.4); Eosinophils % 1.8 % (0.1-12.0); Hematocrit 43.4 % (37.0-47.0); Hemoglobin 13.6 g/dL (12.2-16.2); Lymphocytes # 1.7 K/mm3 (0.7-4.5); Lymphocytes % 29.6 % (10-50); Mean Corpuscular HGB Conc 31.4 g/dL (31.8-35.4); Mean Corpuscular Hemoglobin 29.6 pg (27.0-31.2); Mean Corpuscular Volume 94.3 fl (81-99); Monocytes # 0.4 K/mm3 (0.1-1.0); Monocytes % 6.7 % (1.7-9.3); Neutrophils # 3.5 K/mm3 (1.8-7.8); Neutrophils % 61.5 % (37.0-80.0); Platelet Count 175 K/mm3 (142-424); Red Blood Count 4.61 M/mm3 (4.20-5.40); White Blood Count 5.7 K/mm3 (4.8-10.8)
[2018-03-22 21:21] LABS: Amphetamine/Metha Screen,Urine Negative ng/mL (<1000); Barbiturates Screen,Urine Negative ng/mL (<200); Benzodiazepines Screen,Urine Negative ng/mL (<200); Cannabinoid Screen,Urine Negative ng/mL (<50); Cocaine Screen,Urine Negative ng/mL (<300); Methadone Screen,Urine Negative ng/mL (<300); Opiate Screen,Urine Negative ng/mL (<300); Phencyclidine Screen,Urine Negative ng/mL (<25)
[2018-03-22 21:29] LABS: Alanine Aminotransferase 27 U/L (12-78); Albumin Level 4.4 gm/dL (3.4-5.0); Albumin/Globulin Ratio 1.2 (1.1-1.8); Alkaline Phosphatase 79 U/L (46-116); Anion Gap 15.2 mEq/L (5-15); Aspartate Amino Transferase 18 U/L (15-37); Bilirubin,Total 0.2 mg/dL (0.2-1.0); Blood Urea Nitrogen 25 mg/dL (7-18); Calcium 10.1 mg/dL (8.5-10.1); Carbon Dioxide 27 mmol/L (21.0-32.0); Chloride 101 mmol/L (98-107); Chol/HDL Ratio 2.7 (1-3.5); Cholesterol 254 mg/dL (140-200); Creatinine,Serum 0.79 mg/dL (0.55-1.02); Estimated Glomerular Filt Rate 75 ml/min (>60); GFR (African American) 91 ML/MIN (>60); Globulin 3.6 gm/dl (1.3-3.2); Glucose 94 mg/dL (74-106); HDL Cholesterol 94 mg/dL (29-89); LDL Cholesterol 134 mg/dL (0-130); Potassium 4.2 mmoL/L (3.5-5.1); Sodium 139 mmol/L (136-145); Triglycerides 132 mg/dL (30-200); VLDL Cholesterol 26 mg/dL (0-40)
== END ==
PROVIDERS: Visit Provider Nurse Practitioner Family
DX: M79.606 Pain in leg, unspecified (principal); Z79.899 Other long term (current) drug therapy
CPT/HCPCS: 80053; 80061; 80305; 84443; 85025

== ENCOUNTER → 2018-04-08 13:34 | Outpatient (CLI) | payer BC, SELFPAY | PROVIDERS: Visit Provider Nurse Practitioner Family | DX: R31.9 Hematuria, unspecified (principal); R21 Rash and other nonspecific skin eruption | CPT/HCPCS: 87070; 87077; 87086; 87088; 87186; 87205 ==

== ENCOUNTER → 2018-07-04 07:30 | Outpatient (CLI) | payer BC, SELFPAY ==
[2018-07-04 08:03] LABS: Basophils % 0.5 % (0.1-2.0); Eosinophils # 0.1 K/mm3 (0.0-0.4); Eosinophils % 2.6 % (0.1-12.0); Hematocrit 40.3 % (37.0-47.0); Hemoglobin 13.3 g/dL (12.2-16.2); Lymphocytes # 1.6 K/mm3 (0.7-4.5); Mean Corpuscular HGB Conc 32.9 g/dL (31.8-35.4); Mean Corpuscular Hemoglobin 30.2 pg (27.0-31.2); Mean Corpuscular Volume 91.8 fl (81-99); Mean Platelet Volume 8.1 fl (7.4-10.4); Monocytes # 0.3 K/mm3 (0.1-1.0); Monocytes % 7.7 % (1.7-9.3); Neutrophils # 2.2 K/mm3 (1.8-7.8); Neutrophils % 52.1 % (37.0-80.0); Platelet Count 177 K/mm3 (142-424); Red Cell Distribution Width 14.3 % (11.5-17.5); White Blood Count 4.3 K/mm3 (4.8-10.8)
[2018-07-04 08:30] LABS: Alanine Aminotransferase 27 U/L (12-78); Albumin/Globulin Ratio 1.1 (1.1-1.8); Alkaline Phosphatase 83 U/L (46-116); Anion Gap 11.6 mEq/L (5-15); Aspartate Amino Transferase 16 U/L (15-37); Bilirubin,Total 0.4 mg/dL (0.2-1.0); Blood Urea Nitrogen 17 mg/dL (7-18); Calcium 9.4 mg/dL (8.5-10.1); Carbon Dioxide 30 mmol/L (21.0-32.0); Chloride 101 mmol/L (98-107); Chol/HDL Ratio 3.2 (1-3.5); Cholesterol 214 mg/dL (140-200); Creatinine,Serum 0.66 mg/dL (0.55-1.02); Estimated Glomerular Filt Rate 92 ml/min (>60); GFR (African American) 112 ML/MIN (>60); Globulin 3.5 gm/dl (1.3-3.2); Glucose 88 mg/dL (74-106); HDL Cholesterol 67 mg/dL (29-89); LDL Cholesterol 116 mg/dL (0-130); Potassium 4.6 mmoL/L (3.5-5.1); Sodium 138 mmol/L (136-145); T4 (Thyroxine) 5.8 ug/dl (4.7-13.3); Thyroid Stimulating Hormone 4.17 uIU/ml (0.358-3.740); Total Protein,Serum 7.5 gm/dL (6.4-8.2); Triglycerides 154 mg/dL (30-200); VLDL Cholesterol 31 mg/dL (0-40)
[2018-07-05 08:51] LABS: Vitamin D 25 Hydroxy 28.7 ng/mL (30.0-100.0)
== END ==
PROVIDERS: Visit Provider Physician Assistant
DX: E78.5 Hyperlipidemia, unspecified (principal); R79.89 Other specified abnormal findings of blood chemistry
CPT/HCPCS: 36415; 80053; 80061; 82652; 84436; 84443; 85025

== ENCOUNTER → 2018-10-05 15:24 | Outpatient (CLI) | payer BC, SELFPAY ==
--- NOTE | 2018-10-05 15:28 | CA_ITS ---
APPROVED REPORT Left Lower Extremity Venous Study for DVT. Bi Architect: MOOSE Indications Left pain, swelling LLE; h/o DVT Risk Factors Prior Phlebitis/DVT Left lower extremity vein stripping x 2 years ago. Past History DVT : Vein Imaging CFV (L): compressive, spontaneous, phasic, augmentation FEM (L): compressive, spontaneous, phasic, augmentation POP (L): compressive, spontaneous, phasic, augmentation PTV (L): Compressible GSV (L): compressive, spontaneous, phasic, augmentation SSV (L): Compressible Peroneals (L):Compressible GAS (L): Compressible Findings Color flow duplex demonstrates no evidence of DVT of the following left lower extremity Veins:. Color flow duplex demonstrates no evidence of SVT of the Small and Great Saphenous Veins. Conclusion NEGATIVE FOR DVT Electronically signed by : Rey Soto MD 10/06/2018 11:10:56
== END ==
PROVIDERS: PCP Physician Assistant; Visit Provider Physician Assistant
DX: M79.605 Pain in left leg (principal)
CPT/HCPCS: 93971

== ENCOUNTER → 2019-01-10 09:23 | Outpatient (CLI) | payer BC, SELFPAY ==
[2019-01-10 10:16] LABS: Basophils % 0.7 % (0.1-2.0); Eosinophils # 0.1 K/mm3 (0.0-0.4); Hematocrit 42.7 % (37.0-47.0); Hemoglobin 13.2 g/dL (12.2-16.2); Lymphocytes # 1.3 K/mm3 (0.7-4.5); Lymphocytes % 36.7 % (10-50); Mean Corpuscular HGB Conc 30.9 g/dL (31.8-35.4); Mean Corpuscular Hemoglobin 30.8 pg (27.0-31.2); Mean Corpuscular Volume 99.6 fl (81-99); Mean Platelet Volume 8.7 fl (7.4-10.4); Monocytes # 0.3 K/mm3 (0.1-1.0); Monocytes % 7.4 % (1.7-9.3); Neutrophils # 1.8 K/mm3 (1.8-7.8); Neutrophils % 52.1 % (37.0-80.0); Platelet Count 169 K/mm3 (142-424); Red Blood Count 4.29 M/mm3 (4.20-5.40); Red Cell Distribution Width 14.2 % (11.5-17.5); White Blood Count 3.4 K/mm3 (4.8-10.8)
[2019-01-10 11:54] LABS: Alanine Aminotransferase 21 U/L (12-78); Albumin Level 3.9 gm/dL (3.4-5.0); Albumin/Globulin Ratio 1.1 (1.1-1.8); Alkaline Phosphatase 78 U/L (46-116); Anion Gap 12.6 mEq/L (5-15); Aspartate Amino Transferase 20 U/L (15-37); Bilirubin,Total 0.5 mg/dL (0.2-1.0); Blood Urea Nitrogen 20 mg/dL (7-18); Calcium 9.2 mg/dL (8.5-10.1); Carbon Dioxide 27 mmol/L (21.0-32.0); Chloride 106 mmol/L (98-107); Chol/HDL Ratio 3.5 (1-3.5); Cholesterol 251 mg/dL (140-200); Creatinine,Serum 0.75 mg/dL (0.55-1.02); Estimated Glomerular Filt Rate 80 ml/min (>60); GFR (African American) 96 ML/MIN (>60); Globulin 3.4 gm/dl (1.3-3.2); Glucose 90 mg/dL (74-106); HDL Cholesterol 72 mg/dL (29-89); LDL Cholesterol 121 mg/dL (0-130); Potassium 4.6 mmoL/L (3.5-5.1); Sodium 141 mmol/L (136-145); T4 (Thyroxine) 7.1 ug/dl (4.7-13.3); Thyroid Stimulating Hormone 2.32 uIU/ml (0.358-3.740); Total Protein,Serum 7.3 gm/dL (6.4-8.2); Triglycerides 291 mg/dL (30-200); VLDL Cholesterol 58 mg/dL (0-40)
[2019-01-11 11:47] LABS: Vitamin D 25 Hydroxy 28.1 ng/mL (30.0-100.0)
== END ==
PROVIDERS: Visit Provider Physician Assistant
DX: E03.9 Hypothyroidism, unspecified (principal); E55.9 Vitamin D deficiency, unspecified
CPT/HCPCS: 36415; 80053; 80061; 82652; 84436; 84443; 85025

== ENCOUNTER → 2019-02-09 12:49 | Outpatient (CLI) | payer BC, SELFPAY ==
[2019-02-09 13:24] LABS: Basophils % 0.6 % (0.1-2.0); Eosinophils # 0.1 K/mm3 (0.0-0.4); Eosinophils % 0.9 % (0.1-12.0); Hemoglobin 14.2 g/dL (12.2-16.2); Lymphocytes # 1.6 K/mm3 (0.7-4.5); Lymphocytes % 28.2 % (10-50); Mean Corpuscular HGB Conc 32.3 g/dL (31.8-35.4); Mean Corpuscular Hemoglobin 30.5 pg (27.0-31.2); Mean Corpuscular Volume 94.3 fl (81-99); Mean Platelet Volume 8.2 fl (7.4-10.4); Monocytes # 0.4 K/mm3 (0.1-1.0); Monocytes % 6.3 % (1.7-9.3); Neutrophils # 3.7 K/mm3 (1.8-7.8); Neutrophils % 63.9 % (37.0-80.0); Platelet Count 189 K/mm3 (142-424); Red Blood Count 4.67 M/mm3 (4.20-5.40); Red Cell Distribution Width 14.3 % (11.5-17.5); White Blood Count 5.8 K/mm3 (4.8-10.8)
[2019-02-09 14:52] LABS: Alanine Aminotransferase 37 U/L (12-78); Albumin Level 4.2 gm/dL (3.4-5.0); Albumin/Globulin Ratio 1.1 (1.1-1.8); Alkaline Phosphatase 93 U/L (46-116); Anion Gap 15.5 mEq/L (5-15); Bilirubin,Total 0.4 mg/dL (0.2-1.0); Blood Urea Nitrogen 14 mg/dL (7-18); Calcium 9.4 mg/dL (8.5-10.1); Carbon Dioxide 30 mmol/L (21.0-32.0); Chloride 101 mmol/L (98-107); Creatinine,Serum 0.66 mg/dL (0.55-1.02); Estimated Glomerular Filt Rate 92 ml/min (>60); GFR (African American) 112 ML/MIN (>60); Globulin 3.8 gm/dl (1.3-3.2); Glucose 99 mg/dL (74-106); Sodium 142 mmol/L (136-145)
[2019-02-09 14:53] LABS: Potassium 4.5 mmoL/L (3.5-5.1)
[2019-02-09 14:54] LABS: Aspartate Amino Transferase 30 U/L (15-37)
[2019-02-10 11:44] LABS: Folate >20.0 ng/mL (>3.0); Vitamin B12 763 pg/mL (232-1245)
== END ==
PROVIDERS: Visit Provider Internal Medicine Medical Oncology
DX: D70.9 Neutropenia, unspecified (principal)
CPT/HCPCS: 36415; 80053; 82607; 82746; 85025

== ENCOUNTER → 2019-02-23 13:47 | Outpatient (CLI) | payer BC, SELFPAY ==
--- NOTE | 2019-02-23 13:50 | XR_ITS ---
PROCEDURE: XR ANKLE LT MIN 3V CLINICAL INDICATION: Bilateral ankle pain COMPARISON: No exams were available for comparison FINDINGS: No fracture, dislocation, lytic change, or blastic change evident. No significant degenerative change. There is some minimal calcification along the lateral aspect of the distal tibia which could be related to syndesmotic ossification. IMPRESSION: There may be some minimal syndesmotic calcification of the distal tib fib region which may be seen with old injury. No acute finding Dictated by: Rey Soto MD 02/23/2019 14:34 Electronically signed by Rey Soto MD in [place] 02/23/2019 14:34
--- NOTE | 2019-02-23 13:50 | XR_ITS ---
PROCEDURE: XR ANKLE RT MIN 3V CLINICAL INDICATION: BIlateral ankle pain Right ankle pain COMPARISON: XR ANKLE LT MIN 3V from 02/23/2019 FINDINGS: No fracture, dislocation, lytic change, or blastic change evident. No significant degenerative change. There are 2 small calcific densities along the dorsal aspect of the talus etiology indeterminate. IMPRESSION: No definite acute finding. Dictated by: Rey Soto MD 02/23/2019 14:33 Electronically signed by Rey Soto MD in [place] 02/23/2019 14:33
[2019-02-23 14:47] LABS: Basophils % 0.4 % (0.1-2.0); Eosinophils # 0.1 K/mm3 (0.0-0.4); Eosinophils % 1.7 % (0.1-12.0); Hematocrit 40.7 % (37.0-47.0); Hemoglobin 12.9 g/dL (12.2-16.2); Lymphocytes # 1.7 K/mm3 (0.7-4.5); Lymphocytes % 32.2 % (10-50); Mean Corpuscular HGB Conc 31.6 g/dL (31.8-35.4); Mean Corpuscular Hemoglobin 29.9 pg (27.0-31.2); Mean Corpuscular Volume 94.7 fl (81-99); Mean Platelet Volume 8.5 fl (7.4-10.4); Monocytes # 0.3 K/mm3 (0.1-1.0); Monocytes % 6.3 % (1.7-9.3); Neutrophils # 3.1 K/mm3 (1.8-7.8); Neutrophils % 59.4 % (37.0-80.0); Platelet Count 181 K/mm3 (142-424); White Blood Count 5.3 K/mm3 (4.8-10.8)
[2019-02-23 15:49] LABS: Alanine Aminotransferase 27 U/L (12-78); Albumin/Globulin Ratio 1.2 (1.1-1.8); Alkaline Phosphatase 93 U/L (46-116); Anion Gap 13.1 mEq/L (5-15); Aspartate Amino Transferase 24 U/L (15-37); Bilirubin,Total 0.4 mg/dL (0.2-1.0); Blood Urea Nitrogen 15 mg/dL (7-18); Calcium 8.9 mg/dL (8.5-10.1); Carbon Dioxide 29 mmol/L (21.0-32.0); Chloride 101 mmol/L (98-107); Creatinine,Serum 0.71 mg/dL (0.55-1.02); Estimated Glomerular Filt Rate 85 ml/min (>60); GFR (African American) 103 ML/MIN (>60); Globulin 3.4 gm/dl (1.3-3.2); Glucose 93 mg/dL (74-106); Potassium 4.1 mmoL/L (3.5-5.1); Sodium 139 mmol/L (136-145); Total Protein,Serum 7.4 gm/dL (6.4-8.2); Uric Acid 7.3 mg/dL (2.6-7.2)
[2019-02-23 15:50] LABS: C-Reactive Protein < 0.2 mg/dL (0.0-0.9)
[2019-02-23 15:58] LABS: Erythrocyte Sedimentation Rate 33 mm/hr (0-30)
== END ==
PROVIDERS: PCP Physician Assistant; Visit Provider Physician Assistant
DX: M25.571 Pain in right ankle and joints of right foot (principal); M25.572 Pain in left ankle and joints of left foot
CPT/HCPCS: 36415; 73610; 80053; 84550; 85025; 85651; 86140

== ENCOUNTER → 2019-07-04 15:13 | Outpatient (CLI) | payer BC, SELFPAY ==
[2019-07-04 15:40] LABS: Alanine Aminotransferase 25 U/L (12-78); Albumin/Globulin Ratio 1.3 (1.1-1.8); Alkaline Phosphatase 96 U/L (38-126); Anion Gap 12.3 mEq/L (5-15); Aspartate Amino Transferase 45 U/L (14-36); Bilirubin,Total 0.6 mg/dl (0.2-1.3); Blood Urea Nitrogen 17 mg/dl (7-17); Calcium 10.4 mg/dl (8.4-10.2); Carbon Dioxide 25 mmol/L (22.0-30.0); Chloride 104 mmol/L (98-107); Chol/HDL Ratio 2.7 (1-3.5); Cholesterol 269 mg/dl (140-200); Estimated Glomerular Filt Rate 127 ml/min (>60); GFR (African American) 153 ML/MIN (>60); Globulin 3.8 g/dL (1.3-3.2); Glucose 123 mg/dl (74-100); HDL Cholesterol 99 mg/dl (40-60); Potassium 4.3 mmoL/L (3.5-5.1); Sodium 137 mmol/L (136-145); Total Protein,Serum 8.8 g/dl (6.3-8.2); Triglycerides 400 mg/dl (30-150)
[2019-07-04 15:51] LABS: Direct LDL Cholesterol 128.25 mg/dL (100-129)
[2019-07-04 15:58] LABS: T4 (Thyroxine) 5.8 ug/dl (5.53-11.0)
[2019-07-04 16:09] LABS: Basophils % 0.6 % (0.1-2.0); Eosinophils # 0.1 K/mm3 (0.0-0.4); Lymphocytes % 23.4 % (10-50); Mean Corpuscular HGB Conc 32.4 g/dL (31.8-35.4); Mean Corpuscular Hemoglobin 31.2 pg (27.0-31.2); Mean Corpuscular Volume 96.1 fl (81-99); Mean Platelet Volume 10.1 fl (7.4-10.4); Monocytes # 0.3 K/mm3 (0.1-1.0); Monocytes % 7.2 % (1.7-9.3); Neutrophils # 2.8 K/mm3 (1.8-7.8); Neutrophils % 66.8 % (37.0-80.0); Platelet Count 187 K/mm3 (142-424); Red Blood Count 4.48 M/mm3 (4.20-5.40); Red Cell Distribution Width 15.5 % (11.5-17.5); White Blood Count 4.2 K/mm3 (4.8-10.8)
[2019-07-06 11:37] LABS: Vitamin D 25 Hydroxy 33.1 ng/mL (30.0-100.0)
== END ==
PROVIDERS: Visit Provider Physician Assistant
DX: E03.9 Hypothyroidism, unspecified (principal); E78.5 Hyperlipidemia, unspecified
CPT/HCPCS: 80053; 80061; 82652; 84436; 84443; 85025

== ENCOUNTER → 2019-07-18 09:36 | Outpatient (CLI) | payer BC, SELFPAY ==
[2019-07-18 12:14] LABS: Hemoglobin A1C 5.2 % (4.0-6.0)
== END ==
PROVIDERS: Visit Provider Physician Assistant
DX: R73.9 Hyperglycemia, unspecified (principal)
CPT/HCPCS: 36415; 83036

== ENCOUNTER → 2019-10-03 10:39 | Outpatient (CLI) | payer BC, SELFPAY ==
--- NOTE | 2019-10-03 10:43 | XR_ITS ---
PROCEDURE: XR SHOULDER RT MIN 2V CLINICAL INDICATION: right shoulder pain after direct trauma COMPARISON: CR CXR2V XR chest 2V from 02/18/2017 FINDINGS: The clavicle is intact and the AC joint appears normal. The humeral head and glenoid appear normal. There is a slightly lateral downsloping acromion process but there is no significant subacromial stenosis. IMPRESSION: No acute findings. Dictated by: Dr. Priyank Ashton MD 10/03/2019 11:59 Dr. Priyank Ashton MD in [place] 10/03/2019 11:59
--- NOTE | 2019-10-03 10:43 | XR_ITS ---
PROCEDURE: XR CLAVICLE RT CLINICAL INDICATION: right shoulder pain COMPARISON: No exams were available for comparison FINDINGS: No fracture or dislocation. No lytic or blastic change. There is normal mineralization. The joint spaces are well-preserved. No significant degenerative/arthritic changes. No erosive changes evident. Other findings:There is no significant soft tissue abnormality. IMPRESSION: No acute findings. Dictated by: Dr. Priyank Ashton MD 10/03/2019 12:00 Dr. Priyank sAhton MD in [place] 10/03/2019 12:00
== END ==
PROVIDERS: PCP Physician Assistant; Visit Provider Physician Assistant
DX: M25.511 Pain in right shoulder (principal)
CPT/HCPCS: 73000; 73030

== ENCOUNTER 2019-10-19 09:52 | Outpatient (RCR) | payer BC, SELFPAY ==
--- NOTE | 2019-10-19 10:55 | HMH.OTOPEV ---
OT Inpatient Evaluation Rehab OT Outpatient Eval Start: 10/19/19 10:39 Freq: Status: Active Protocol: Document 10/19/19 10:39 MARIA LUZ (Rec: 10/19/19 10:54 MARIA LUZ [id number]) Electronically Signed By Sandee Ramírez, OT 10/19/19 10:39 Outpatient Therapy Subjective History Subjective History 59 year old female being referred to OT OP services R shoulder pain. In August 2019, Patient was trimming branches when a branch fell onto the right shoulder. X-ray completed on R clavicle and R shoulder on 10/02 with no acute findings. Patient verbalize during OT evaluation having pain on right side of neck and tingling in the R fingers. Patient tested positive for empty can and Hawk/Loki, however possibly could be false positive. PT screened Patient with concerned pain coming from the neck. Patient tested postivie for cervical radiculopathy by PT. Patient is being referred to PT to continue tx at this time. Chief Complaint Pain,Weakness Symptom Type Sharp,Numbness Symptoms Relieved By Nothing Symptoms Aggravated By Physical Activity Prior Functional Limitations None Current Functional Limitations Lifting,Dressing,Driving Symptom Description Constant and Continuous Level of pain today (0-10) 5 Pain scale - at its best (0-10) 5 Pain scale - at its worst (0-10) 10 Shoulder/Elbow Eval Shoulder Objective Measurements Shoulder ROM Right Shoulder Abduction Active Range of 70 Motion (degrees) Shoulder Flexion Active Range of Motion 80 (degrees) Query Text: Shoulder External Rotation Active Range 20 of Motion (degrees) Shoulder Internal Rotation Active Range 50 of Motion (degrees) pain with active ROM shoulder exam right standard Shoulder MMT Shoulder Abduction Strength Grade 2+ Poor+ Shoulder Extension Strength Grade 2+ Poor+ Shoulder Flexion Strength Grade 2+ Poor+ Shoulder Horizontal Abduction Strength 2+ Poor+ Grade Shoulder Horizontal Adduction Strength 2+ Poor+ Grade Shoulder External Rotation Strength 2+ Poor+ Grade
== END 2019-10-19 13:00 | disposition home or self-care (01) ==
LOC: OT 09:52
PROVIDERS: PCP Physician Assistant; Visit Provider Physician Assistant
DX: M25.511 Pain in right shoulder (principal)
CPT/HCPCS: 97165

== ENCOUNTER → 2019-11-10 09:56 | Outpatient (CLI) | payer BC, SELFPAY ==
--- NOTE | 2019-11-10 10:06 | XR_ITS ---
PROCEDURE: XR SHOULDER RT MIN 2V CLINICAL INDICATION: RT shoulder pain COMPARISON: CR XR SHOULDER RT MIN 2V from 10/03/2019 FINDINGS: No definite acute fracture or dislocation. There is a small defect within the central glenoid region on the Grashey view. There is some minimal hyperostosis along the posterior aspect of the glenoid on the axillary view. These findings may represent variance of normal or could be chronic posttraumatic changes. The joint space is well preserved. IMPRESSION: No definite acute finding. Please see above for detail. Dictated by: Rey Soto MD 11/10/2019 11:10 Rey Soto MD in [place] 11/10/2019 11:10
== END ==
PROVIDERS: PCP Physician Assistant; Visit Provider Orthopaedic Surgery
DX: M25.511 Pain in right shoulder (principal)
CPT/HCPCS: 73030

== ENCOUNTER 2019-11-20 09:00 | Outpatient (RCR) | payer BC, SELFPAY | END 2019-11-20 14:33 | disposition home or self-care (01) | LOC: PT.CARL 09:00 | PROVIDERS: PCP Physician Assistant; Visit Provider Physician Assistant | DX: M54.2 Cervicalgia (principal) | CPT/HCPCS: 97012; 97110; 97140; 97163 ==

== ENCOUNTER → 2019-11-21 08:30 | Outpatient (CLI) | payer BC, SELFPAY ==
--- NOTE | 2019-11-21 08:30 | MR_ITS ---
PROCEDURE: MR SHOULDER RT WO CON CLINICAL INDICATION: Rt shoulder pain UNABLE TO RASIE ARM. TREE LIMB FELL ON PTS SHOULDER IN AUGUST AND PAIN SINCE. WEAKNESSIN ARM. PRIOR X-RAY 11-10-19 COMPARISON: CR XR SHOULDER RT MIN 2V from 11/10/2019 TECHNIQUE: Routine multiplanar multi echo sequences are performed without gadolinium enhancement. FINDINGS: There is complete tear of the infraspinatus tendon with mild retraction of the musculotendinous fibers. Supraspinatus tendon has an unusual appearance thinned in nature with an oblique area of increased T2 signal just lateral to the subacromial area with some thinning of the tendon at this level with thickening of the tendon distally. These findings are suspicious for partial tear. There does appear to be some fibers intact. No obvious labral tear. The subscapularis and teres minor tendons appear intact. There is a small to medium size shoulder joint effusion. Fluid is present in the subacromial and subdeltoid region. Small amount fluid is present in the subcoracoid area. Bicipital tendon is in place. There is mild superior location of the humeral head. Mild acromioclavicular arthropathy with mild subacromial stenosis is noted. IMPRESSION: Complete tear of the infraspinatus tendon with retraction of the musculotendinous fibers Partial tear of the supraspinatus tendon with thinning of the tendon in the subacromial region and thickening of the tendon distally which may imply a intrasubstance tear with some retraction Shoulder joint effusion with acromioclavicular arthropathy and mild subacromial stenosis and mild superior location of the humeral head.. Dictated by: Rey Soto MD 11/24/2019 14:36 Rey Soto MD in [place] 11/24/2019 14:36
== END ==
PROVIDERS: PCP Physician Assistant; Visit Provider Orthopaedic Surgery
DX: M25.511 Pain in right shoulder (principal)
CPT/HCPCS: 73221

== ENCOUNTER → 2020-01-26 09:27 | Outpatient (CLI) | payer BC, SELFPAY ==
--- NOTE | 2020-01-26 09:28 | CA_ITS ---
APPROVED REPORT EXAM: Comprehensive 2D, Doppler, and color-flow Echocardiogram Parachute Inspector: Lila Davies RT(R) Ht: 5 ft 5 in Wt: 130lbs BSA: 1.65 BP: 142/90 mmHg Indications: HTN, preop shoulder surgery, hyperlipidemia, asthma, hx of DVT, GERD 2D Dimensions LVOT 1.80 cm (M/F) 1.5-2.5 M-Mode Dimensions RVDd 1.90 cm (0.9-2.6) LA Diam 3.01 cm (1.9-4.0) LVDd 4.66 cm (3.5-5.7) Ao Diam 2.55 cm (2.0-3.7) LVDs 3.44 cm (3.5-5.7) IVSd 0.97 cm (0.6-1.1) PWd 0.93 cm (0.6-1.1) EF (Teich) 51.30% FS 26.20% EDV (Teich) 100.30 mL ESV (Teich) 48.80 mL LV Diastology E Decel Time 193.00 (160-240 msec) E/A Ratio 0.9 MED E' 11.10 (< 7 cm/sec) E'/MED E' Ratio 7.81 (>14) LAT E' 10.30 (<10 cm/sec) E/LAT E' Ratio 8.42 (>14) Mitral Valve MV E Max Jesus. 87.00 (40-130 cm/s) MV A Velocity 95.00 (40-130 cm/s) E/A Ratio 0.92 MV Decel. Time 193.00 (160-240 ms) MV PHT 57.00 ms Left Ventricle Left atrium is normal size, left ventricle is normal size, there is no concentric left ventricular hypertrophy, visually estimated ejection fraction 55% with no regional wall motion abnormality, diastolic parameters are within normal range. Right Ventricle Right atrium and right ventricle are normal size and contractility. Aortic Valve Aortic valve is minimally thickened and fibrosed, there is no aortic stenosis or aortic insufficiency. Mitral Valve Mitral valve is grossly normal, there is mild mitral regurgitation. Tricuspid Valve Tricuspid valve grossly normal, there is mild tricuspid regurgitation, tricuspid regurgitation jet velocity is inadequate for calculation of the right ventricular systolic pressure. Pulmonic Valve Pulmonic valve is poorly visualized. Great Vessels Aortic root is normal size. Pericardium No significant pericardial effusion noted Conclusion 1. Normal left ventricular size, preserved left ventricular systolic function, visually estimated ejection fraction 55% with no regional wall motion abnormality, diastolic parameters are within normal range. 2. Mild mitral and tricuspid regurgitation. 3. No significant pericardial effusion noted. Electronically signed by : Klaus Macedo, 01/26/2020 13:37:46
== END ==
PROVIDERS: PCP Physician Assistant; Visit Provider Nurse Practitioner Family
DX: Z01.810 Encounter for preprocedural cardiovascular examination (principal); E78.5 Hyperlipidemia, unspecified; M25.511 Pain in right shoulder
CPT/HCPCS: 93306

== ENCOUNTER → 2020-01-29 12:39 | Outpatient (CLI) | payer BC, SELFPAY ==
[2020-01-29 12:46] LABS: MANUAL DIFFERENTIAL MANUAL DIFFERENTIAL (MANUAL DIFF)
[2020-01-29 13:41] LABS: Basophils % 0.5 % (0.1-2.0); Eosinophils # 0.1 K/mm3 (0.0-0.4); Hematocrit 44.7 % (37.0-47.0); Hemoglobin 14.7 g/dL (12.2-16.2); Lymphocytes # 1.5 K/mm3 (0.7-4.5); Lymphocytes % 28.6 % (10-50); Mean Corpuscular HGB Conc 32.9 g/dL (31.8-35.4); Mean Corpuscular Hemoglobin 32.7 pg (27.0-31.2); Mean Corpuscular Volume 99.2 fl (81-99); Mean Platelet Volume 8.6 fl (7.4-10.4); Monocytes # 0.4 K/mm3 (0.1-1.0); Monocytes % 7.3 % (1.7-9.3); Neutrophils # 3.3 K/mm3 (1.8-7.8); Neutrophils % 61.6 % (37.0-80.0); Platelet Count 218 K/mm3 (142-424); Red Blood Count 4.51 M/mm3 (4.20-5.40); Red Cell Distribution Width 13.7 % (11.5-17.5); White Blood Count 5.4 K/mm3 (4.8-10.8)
[2020-01-29 15:06] LABS: Chloride 101 mmol/L (98-107); Potassium 4.7 mmoL/L (3.5-5.1); Sodium 140 mmol/L (136-145)
[2020-01-29 15:08] LABS: Blood Urea Nitrogen 17 mg/dl (7-17); Estimated Glomerular Filt Rate 74 ml/min (>60); GFR (African American) 89 ML/MIN (>60)
[2020-01-29 15:09] LABS: Alanine Aminotransferase 19 U/L (12-78); Albumin Level 4.9 g/dl (3.5-5.0); Albumin/Globulin Ratio 1.5 (1.1-1.8); Alkaline Phosphatase 76 U/L (38-126); Anion Gap 13.7 mEq/L (5-15); Aspartate Amino Transferase 36 U/L (14-36); Bilirubin,Total 0.4 mg/dl (0.2-1.3); Calcium 10.3 mg/dl (8.4-10.2); Carbon Dioxide 30 mmol/L (22.0-30.0); Globulin 3.2 g/dL (1.3-3.2); Glucose 90 mg/dl (74-100); Total Protein,Serum 8.1 g/dl (6.3-8.2)
[2020-01-29 15:34] LABS: Coronavirus 19 IgG Antibody Negative (Negative); Coronavirus 19 IgM Antibody Negative (Negative)
[2020-01-29 15:46] LABS: Lymphocytes % 24 % (10-50); Monocytes % 17 % (2-9); Neutrophils % 59 % (42-76); Platelet Estimate Normal; RBC Morphology Normal; Total Cells Counted 100
== END ==
PROVIDERS: Visit Provider Orthopaedic Surgery
DX: Z01.818 Encounter for other preprocedural examination (principal); Z03.818 Encounter for observation for suspected exposure to other biological agents ruled out; M25.511 Pain in right shoulder
CPT/HCPCS: 36415; 80053; 85007; 85014; 85018; 85048; 85049; 86328

== ENCOUNTER → 2020-01-30 08:29 | Day surgery (SDC) | payer BC, SELFPAY ==
[2020-01-29 13:58] VITALS: BMI 21.6
[2020-01-30 08:57] VITALS: BP 141/88; PULSE 75; RESP 18; TEMP 36.4; O2SAT 99
--- NOTE | 2020-01-30 14:24 | SUR.PREOP ---
Case cancelled per Dr. Dr. Haji, to be rescheduled in the future.
== END ==
PROVIDERS: PCP Physician Assistant; Visit Provider Orthopaedic Surgery
PROC: (CPT 29805; principal; 2020-01-30 10:00)
DX: Z53.8 Procedure and treatment not carried out for other reasons (principal); S46.011A Strain of muscle(s) and tendon(s) of the rotator cuff of right shoulder, initial encounter
CPT/HCPCS: 96374

== ENCOUNTER → 2020-02-13 11:09 | Outpatient (CLI) | payer BC, SELFPAY ==
[2020-02-13 12:40] LABS: Coronavirus 19 IgG Antibody Negative (Negative); Coronavirus 19 IgM Antibody Negative (Negative)
== END ==
PROVIDERS: Visit Provider Orthopaedic Surgery
DX: Z01.818 Encounter for other preprocedural examination (principal); Z03.818 Encounter for observation for suspected exposure to other biological agents ruled out; M25.511 Pain in right shoulder; S46.011D Strain of muscle(s) and tendon(s) of the rotator cuff of right shoulder, subsequent encounter; M75.51 Bursitis of right shoulder; M75.41 Impingement syndrome of right shoulder; M75.21 Bicipital tendinitis, right shoulder
CPT/HCPCS: 36415; 86328

== ENCOUNTER 2020-02-15 06:10 | Day surgery (SDC) | payer BC, SELFPAY ==
[2020-02-07 11:07] VITALS: BMI 21.6
[2020-02-15] VITALS (19 sets, daily range): BP systolic 142–184; BP diastolic 77–119; PULSE 68–92; RESP 16–18; TEMP 36.1–38; O2SAT 92–98
--- NOTE | 2020-02-15 07:04 | P.PN_ITS ---
[facility] [place] Anesthesia Checklist - Patient Identification Patient Identification: Arm Band, Verbal (Name & ) - Structural Data Admitted From: Home Planned Operative Procedure/s: shoulder scope Consent for Planned Operative Procedure(s) Verified: Yes Verified Documents: History and Physical - NPO Status Verified Time NPO: 00:00 - Chart Verification Results Verified: CBC, BMP - Additional verifications Patient : No Anesthesia Reactions: No Hx Blood Transfusions: No Blood Transfusion Reaction: No Cephalosporin Allergy: No Previous Colonoscopy: No - Cardiovascular Assessment Heart Sounds: S1 & S2 Pulse Strength: Baseline Pulse Rhythm: Regular Peripheral Edema: No - Airway Assessment C-Spine Mobility Assessed: Yes TMJ Mobility Assessed: Yes Dentition: Edentulous - Neurological Assessment Level of Consciousness: Awake, Alert, Appropriate Hx Seizures: No Numbness or tingling in extremities: No - Anesthesia Plan Anesthesia Risk discussed: Yes Anesthesia Plan: Verified ASA Class: III Anesthesia Type: General w/block [facility] [place] History I have reviewed the patient's past medical history: Yes Medical History: Reports:: Anxiety, Asthma, Deep Vein Thrombosis, Gastroesophageal Reflux Disease(GERD), Hyperlipidemia Denies:: Cancer, Diabetes Mellitus Type 1, Diabetes Mellitus Type 2, Internal Pacemaker, MRSA, Seizures *Have you ever received a pneumonia vaccine?: No *Have you received a flu vaccine this season?: No Other Medical History: Reports: Hypothyroidism, Other. Denies: Blood Transfusion Reaction Anesthesia experience/problems:: none Laterality Cases: Left: Other Other Surgeries: Yes: Cholecystectomy, Hysterectomy-Partial, Tubal Ligation. No: Pacemaker Amputation: No Fractures: Yes (Collar Bone) - *Social History Last grade of school completed: Some college Smoking Status: Never smoker Alcohol Intake: current Alcohol Intake Frequency:: 3 or more drinks per day Substance Use Type: marijuana *Occupational Status:: unemployed, disabled Housing: house Household Members: significant other *Travel in the last 8 weeks: None - Psychiatric History Pschychiatric History:: Reports:: Anxiety Family Hx:: Asthma, Cancer, Diabetes, Heart Attack, Hyperlipidemia, Hypertension, Stroke, Thyroid Disorder, Alcoholism, Mental illness
--- NOTE | 2020-02-15 13:13 | P.PN_ITS ---
[facility] Anesthesia Record Part I Intake, IV Amount: 1,800 Estimated blood loss (mL): 5 Urine output (mL): 200 Blood Products used (#): none Blood Pressure: 150/97 SaO2: 97 Pulse Rate: 80 Respiratory Rate: 18 Temperature: 97.0 F Patient is:: Drowsy, Stable Stable to PACU at:: 13:09
[2020-02-15 13:14] LABS: Microscopic,Cath URINE MICROSCOPIC (MICROSCOPIC)
[2020-02-15 13:17] LABS: Appearance,Urine/Cath CLEAR (Clear); Bilirubin,Cath Negative (Negative); Blood, Urine/Cath Negative (Negative); Color,Urine/Cath YELLOW (Yellow); Glucose,Urine/Cath (UA) Negative (Negative); Ketones,Urine/Cath Negative (Negative); Leukocyte Esterase,Cath Negative (Negative); Nitrate,Cath Negative (Negative); Protein,Urine/Cath Negative (Negative); Specific Gravity, Urine/Cath >= 1.030 (1.005-1.030); Urobilinogen,Cath 0.2 EU/dl (0.2)
[2020-02-15 13:20] LABS: RBC,Urine/Cath Occasional # /hpf (0-3); Squamous Epithelial Ur./Cath Occasional #/hpf (0-5)
--- NOTE | 2020-02-15 13:37 | ECG_ITS ---
APPROVED REPORT Exam: Resting ECG HR:81 bpm ECG Measurements Heart Rate 81 AXES IL 152 P 10 QRSd 86 QRS -6 QT 426 T 6 QTc 494 Conclusion Normal sinus rhythm ST & T wave abnormality, consider anterolateral ischemia Prolonged QT Abnormal ECG Electronically signed by : Rick Martini, 02/15/2020 19:20:26
--- NOTE | 2020-02-15 13:45 | SUR.OPER ---
RT at bedside for 12 lead EKG to r/o cardiac diagnosis for chest/shoulder pain.
--- NOTE | 2020-02-15 18:56 | HMH.OPNOTE ---
Date of procedure: 02/15/20 Pre-op Diagnosis:: 1. Full-thickness Rotator cuff tear RIGHT shoulder 2. Biceps tendinopathy RIGHT shoulder 3. Subacromial bursitis RIGHT shoulder 4. Subacromial impingement RIGHT shoulder Post-op Diagnosis:: 1. Rotator cuff tear RIGHT shoulder- Full thickness complete tear of the infraspinatus and full thickness partial tear of supraspinatus tendons. 2. Biceps tendinopathy RIGHT shoulder 3. Subacromial bursitis RIGHT shoulder 4. Subacromial impingement RIGHT shoulder 5. Degenerative labrum and synovitis RIGHT glenohumeral joint 6.? Tendinopathy subscapularis tendon RIGHT shoulder 7. Early osteoarthritis, humeral head, RIGHT shoulder Procedure performed:: 1. Arthroscopic rotator cuff repair, RIGHT shoulder. 2. Arthroscopic subacromial decompression with subacromial and subdeltoid bursectomy and bony acromioplasty, RIGHT shoulder. 3. Arthroscopic glenohumeral joint debridement, extensive, RIGHT shoulder. 4.? Arthroscopic biceps tenodesis, RIGHT shoulder Surgeon:: Abhinav Duvall MD Business Support(s):: Martha Choudhary SENIOR BRAND MANAGER:: Mary Méndez Anesthesia: GETA, regional (Interscalene nerve block) Estimated blood loss (mL): 10 Clinical Note:: Patient is a pleasant 59-year-old [id number] female with history of pain and disability in his RIGHT shoulder following an injury about 6 months ago. She had weakness and difficulty with the use of the arm. Preoperative evaluation was consistent with the above mentioned diagnosis. After discussion of the risks and benefits of the surgical versus nonsurgical management, patient elected to proceed with surgical remediation. Please refer to my office note for full details. Operative findings:: There was a full-thickness crescent-shaped complete and partially retracted tear of the supraspinatus and infraspinatus tendons. The biceps tendon showed synovitis in the biceps groove. At the time of arthroscopic tenodesis marked synovitis and partial thickness tear was noted in the extra-articular part of the biceps tendon. The labrum was frayed all around but not detached. The pouch and rotator interval were synovitic. The articular surface of the humerus had minor degenerative changes and the glenoid had well-preserved cartilage. There was extensive subacromial and subdeltoid bursitis and the acromion had undersurface spurring over the anterolateral margin. Operative note:: On the day of the procedure, the patient was met and positively identified in the preoperative area; the surgical site was marked and initialed by me. I have again reviewed the clinical, x- ray and MRI findings with the patient. We had a detailed discussion about the diagnosis, implications of it, natural history and management options including both nonsurgical and surgical options for the shoulder.? Patient has decided to proceed with surgery as planned - the proposed surgery includes arthroscopic/open glenohumeral joint examination and debridement as appropriate, subacromial decompression with bony acromioplasty, rotator cuff repair as needed and biceps tenodesis.? Nonsurgical alternatives explained as well which in his case would be rest, activity modification, local ice and heat as appropriate, physical therapy, local steroid injections, nonsteroidal anti-inflammatory drugs and other effective pain management measures. I told the patient that there were no guarantees with surgery; he could be no better or even worse. The complications discussed include but are not limited to infection, injury to nerves, blood vessels and tendons/ligaments, bleeding, continued symptoms, ectopic calcification, reactive bursitis, adhesive capsulitis, shoulder stiffness, chondrolysis, failure of the tendon to heal, tendon re-rupture, implant failure, likely need for further surgery, reaction to anesthetic with damage to the heart, lungs, brain, and even .? We discussed possible screw site pain with tenodesis and the extra surgery involved and complica
--- NOTE | 2020-02-16 09:15 | P.PN_ITS ---
[facility] Anesthesia Record Part II Discharge Time: 13:39 Destination: Surgical Day Care (OP Surgery) PACU nurse assessment reviewed?: Yes Patient Condition:: Good Anesthesia Complications:: None Swallowing reflex intact?: Yes Cyanosis?: No Blood Pressure: 184/119 Pulse Rate: 92 Temperature: 98.0 F Mental Status: Alert & Oriented Pain level:: 10 Nausea and/or vomitting:: None Intake, IV Amount: 50
[2020-02-16 09:16] VITALS: BP 184/119; PULSE 92; TEMP 36.7
== END 2020-02-15 15:35 | disposition home or self-care (01) ==
LOC: OR 06:11
PROVIDERS: PCP Physician Assistant; Visit Provider Orthopaedic Surgery
PROC: (CPT 29805; principal; 2020-02-15 07:30)
DX: M75.121 Complete rotator cuff tear or rupture of right shoulder, not specified as traumatic (principal); M75.41 Impingement syndrome of right shoulder; M75.51 Bursitis of right shoulder
CPT/HCPCS: 29827; 29828; 29826; 81001; 93005; 96374; C1713; J0131; J2405

== ENCOUNTER → 2020-04-08 09:02 | Outpatient (CLI) | payer BC, SELFPAY ==
--- NOTE | 2020-04-08 09:08 | MM_ITS ---
PROCEDURE: MM DIG SCREENING MAMM BI W/CAD Digital Breast Tomosynthesis Included CLINICAL INDICATION: Breast cancer screening There is no personal or family history of breast cancer. COMPARISON: MG DMSB DIG MAMM-SCREEN AMY from 03/18/2015 TECHNIQUE: Standard CC and MLO images and 3D Tomosynthesis was obtained. R2 CAD reviewed. FINDINGS: Scattered diffuse fibroglandular densities are seen throughout both breasts. There are scattered areas of arterial calcification in each breast as noted previously. There is no new or suspicious lesion in either breast and no suspicious microcalcifications. IMPRESSION: Moderate diffuse breast density with no suspicious lesions seen BI-RAD Category: 2 Benign Finding(s) FOLLOW-UP: 1YR 1 Year Follow-up (A letter has been sent to the patient regarding results of the study.) Dictated by: Dr. Priyank Ashton MD 04/09/2020 08:31 Dr. Priyank Ashton MD in [place] 04/09/2020 08:31
== END ==
PROVIDERS: PCP Physician Assistant; Visit Provider Physician Assistant
DX: Z12.31 Encounter for screening mammogram for malignant neoplasm of breast (principal)
CPT/HCPCS: 77063; 77067

== ENCOUNTER → 2020-05-15 09:31 | Outpatient (CLI) | payer BC, SELFPAY ==
--- NOTE | 2020-05-15 09:37 | XR_ITS ---
PROCEDURE: XR SHOULDER RT MIN 2V CLINICAL INDICATION: s/p RT shoulder arthroscopy COMPARISON: CR XR SHOULDER RT MIN 2V from 10/03/2019 CR XR SHOULDER RT MIN 2V from 11/10/2019 FINDINGS: Prior rotator cuff repair with tendon anchors noted in the right humeral head. Postsurgical changes are noted in the right proximal humeral diaphysis. The glenohumeral joint is unremarkable. There is evidence of minor erosive changes noted in the distal clavicle with increased acromioclavicular distance. This is new compared to the prior study. Soft tissues and visualized right hemithorax are unremarkable. IMPRESSION: Sequela of prior rotator cuff repair. Minor erosive changes in the distal end of the clavicle, new compared to the prior study. Postsurgical changes versus acro-osteolysis should be considered. Dictated by: Mamie Duvall 05/15/2020 11:50 Mamie Duvall in [place] 05/15/2020 11:50
== END ==
PROVIDERS: PCP Physician Assistant; Visit Provider Orthopaedic Surgery
DX: M54.12 Radiculopathy, cervical region (principal)
CPT/HCPCS: 73030

== ENCOUNTER 2020-05-30 09:00 | Outpatient (RCR) | payer BC, SELFPAY ==
--- NOTE | 2020-04-11 09:56 | HMH.OTOPEV ---
OT Inpatient Evaluation Rehab OT Outpatient Eval Start: 04/11/20 09:45 Freq: Status: Active Protocol: Document 04/11/20 09:46 INOCENTEADELAIDA (Rec: 04/11/20 09:55 MARIA LUZ [id number]) Electronically Signed By Sandee Ramírez, OT 04/11/20 09:46 Outpatient Therapy Subjective History Subjective History 59 year old female referred to skilled OP OT services for s/ p from 02/15/20, Arthroscopic rotator cuff repair, RIGHT shoulder, Arthroscopic subacromial decompression with subacromial and subdeltoid bursectomy and bony acromioplasty, RIGHT shoulder, Arthroscopic glenohumeral joint debridement, extensive, RIGHT shoulder and Arthroscopic biceps tenodesis, RIGHT shoulder. Operation findings: There was a full- thickness crescent-shaped complete and partially retracted tear of the supraspinatus and infraspinatus tendons. The biceps tendon showed synovitis in the biceps groove. At the time of arthroscopic tenodesis marked synovitis and partial thickness tear was noted in the extra-articular part of the biceps tendon. The labrum was frayed all around but not detached. The pouch and rotator interval were synovitic. The articular surface of the humerus had minor degenerative changes and the glenoid had well- preserved cartilage. There was extensive subacromial and subdeltoid bursitis and the acromion had undersurface spurring over the anterolateral margin. Patient was currently in sling at OT OP evaluation appointment, per ortho notes sling to be d/c 6 -8 weeks post op. OT d/c sling for R shoulder this date. Chief Complaint Pa
== END 2020-07-16 08:10 | disposition home or self-care (01) ==
LOC: OT 09:00
PROVIDERS: PCP Physician Assistant; Visit Provider Orthopaedic Surgery
DX: M75.121 Complete rotator cuff tear or rupture of right shoulder, not specified as traumatic (principal)
CPT/HCPCS: 97010; 97014; 97110; 97140; 97164; 97165; 97530; G0283

== ENCOUNTER → 2020-10-24 18:54 | Outpatient (CLI) | payer BC, SELFPAY ==
[2020-10-24 19:44] LABS: Basophils % 0.5 % (0.1-2.0); Eosinophils # 0.1 K/mm3 (0.0-0.4); Hematocrit 44.9 % (37.0-47.0); Hemoglobin 14.8 g/dL (12.2-16.2); Lymphocytes # 1.3 K/mm3 (0.7-4.5); Lymphocytes % 31.5 % (10-50); Mean Corpuscular HGB Conc 32.9 g/dL (31.8-35.4); Mean Corpuscular Hemoglobin 32.9 pg (27.0-31.2); Mean Corpuscular Volume 100.1 fl (81-99); Mean Platelet Volume 10.8 fl (7.4-10.4); Monocytes # 0.4 K/mm3 (0.1-1.0); Monocytes % 8.4 % (1.7-9.3); Neutrophils # 2.4 K/mm3 (1.8-7.8); Neutrophils % 56.7 % (37.0-80.0); Platelet Count 160 K/mm3 (142-424); Red Blood Count 4.48 M/mm3 (4.20-5.40); Red Cell Distribution Width 14.6 % (11.5-17.5); White Blood Count 4.3 K/mm3 (4.8-10.8)
[2020-10-24 20:18] LABS: Benzodiazepines Screen,Urine Negative ng/ml (<200)
[2020-10-24 20:19] LABS: Amphetamine/Metha Screen,Urine Negative ng/ml (<1000); Barbiturates Screen,Urine Negative ng/ml (<200)
[2020-10-24 20:20] LABS: Cannabinoid Screen,Urine Positive ng/ml (<50)
[2020-10-24 20:21] LABS: Cocaine Screen,Urine Negative ng/ml (<300); Methadone Screen,Urine Negative ng/ml (<300)
[2020-10-24 20:22] LABS: Opiate Screen,Urine Negative ng/ml (<300); Phencyclidine Screen,Urine Negative ng/ml (<25)
[2020-10-24 20:32] LABS: Alanine Aminotransferase 23 U/L (12-78); Albumin Level 4.8 g/dl (3.5-5.0); Albumin/Globulin Ratio 1.3 (1.1-1.8); Alkaline Phosphatase 89 U/L (38-126); Anion Gap 15.3 mEq/L (5-15); Aspartate Amino Transferase 47 U/L (14-36); Bilirubin,Total 0.5 mg/dl (0.2-1.3); Blood Urea Nitrogen 12 mg/dl (7-17); Calcium 9.6 mg/dl (8.4-10.2); Carbon Dioxide 27 mmol/L (22.0-30.0); Chloride 105 mmol/L (98-107); Chol/HDL Ratio 3.6 (1-3.5); Cholesterol 257 mg/dl (140-200); Estimated Glomerular Filt Rate 126 ml/min (>60); GFR (African American) 153 ML/MIN (>60); Globulin 3.6 g/dL (1.3-3.2); Glucose 102 mg/dl (74-100); HDL Cholesterol 72 mg/dl (40-60); Potassium 4.3 mmoL/L (3.5-5.1); Sodium 143 mmol/L (136-145); Total Protein,Serum 8.4 g/dl (6.3-8.2)
[2020-10-24 20:40] LABS: Triglycerides 1452 mg/dl (30-150)
[2020-10-24 20:43] LABS: Direct LDL Cholesterol 52.99 mg/dL (100-129)
[2020-10-24 20:48] LABS: Free T4 (Free Thyroxine) 0.93 ng/dl (0.78-2.19)
[2020-10-24 20:49] LABS: 25-OH Vitamin D, Total 28.7 ng/mL (30-100)
[2020-10-24 21:03] LABS: Thyroid Stimulating Hormone 3.91 uIU/mL (0.465-4.68)
== END ==
PROVIDERS: Visit Provider Physician Assistant
DX: E03.9 Hypothyroidism, unspecified (principal); E78.5 Hyperlipidemia, unspecified; E87.6 Hypokalemia; E55.9 Vitamin D deficiency, unspecified; Z79.899 Other long term (current) drug therapy
CPT/HCPCS: 80053; 80061; 80305; 82306; 84439; 84443; 85025

== ENCOUNTER → 2020-11-04 10:34 | Outpatient (CLI) | payer BC, SELFPAY ==
[2020-11-04 13:27] LABS: Folate > 20.00 ng/mL; Vitamin B12 > 1000 pg/mL (239-931)
[2020-11-05 08:31] LABS: Hep A Ab, IgM Negative (Negative); Hepatitis B Core Antibody IgM Negative (Negative); Hepatitis B Surface Antigen Negative (Negative); Hepatitis C Antibody <0.1 s/co ratio (0.0-0.9)
== END ==
PROVIDERS: Visit Provider Physician Assistant
DX: E78.2 Mixed hyperlipidemia (principal); R74.8 Abnormal levels of other serum enzymes
CPT/HCPCS: 36415; 80074; 82607; 82746

== ENCOUNTER → 2020-11-11 08:01 | Outpatient (CLI) | payer BC, SELFPAY ==
--- NOTE | 2020-11-11 08:05 | MR_ITS ---
PROCEDURE: MR CERVICAL SPINE WO CON CLINICAL INDICATION: neck pain radiating into head COMPARISON: No exams were available for comparison TECHNIQUE: Standard multiplanar multiecho sequences are performed without contrast. 3-D MIP and myelographic images are also rendered and reviewed FINDINGS: There is normal alignment. The craniocervical junction has an unremarkable appearance. C2-C3 unremarkable. C3-C4: Mild left-sided foraminal narrowing from facet and uncovertebral hypertrophy. C4-C5: Small anterior osteophytes. C5-C6: Degenerative disc disease with small anterior osteophytes. There is mild prominence/ossification of the posterior longitudinal ligament with borderline canal stenosis. Moderate left-sided foraminal narrowing is present from facet and uncovertebral hypertrophy C6-C7: Degenerative disc disease with narrowing of the canal at 10 mm with posterior longitudinal ligament hypertrophy/ossification with moderate bilateral foraminal narrowing from uncovertebral hypertrophy.. C7-T1: Unremarkable No extruded herniated disc. IMPRESSION: Multilevel cervical spondylosis with canal stenosis and foraminal narrowing. Please see above for detailed description at each level. No extruded herniated disc. Dictated by: Rey Soto MD 11/11/2020 13:59 Rey Soto MD in [place] 11/11/2020 13:59
--- NOTE | 2020-11-11 08:05 | MR_ITS ---
PROCEDURE: MR HEAD/BRAIN WO CON CLINICAL INDICATION: headache Headache with blurred vision COMPARISON: No exams were available for comparison TECHNIQUE: Routine multiplanar multi echo sequences are performed without gadolinium enhancement. FINDINGS: No midline shift, mass effect, intracranial hemorrhage, or hydrocephalus is evident. The cerebellopontine angle, cerebellum, and brainstem have an unremarkable appearance. Unremarkable appearing white matter. No evidence of acute infarction. The pituitary, optic chiasm, corpus callosum, and craniocervical junction have an unremarkable appearance. No mastoid effusion. There is moderate mucosal thickening of the sphenoid sinus on the left and mild ethmoid sinus mucosal thickening. Unremarkable appearing orbits. IMPRESSION: No acute intracranial findings. Left sphenoid and mild ethmoid sinus disease Dictated by: Rey Soto MD 11/11/2020 13:52 Rey Soto MD in [place] 11/11/2020 13:52
== END ==
PROVIDERS: PCP Physician Assistant; Visit Provider Physician Assistant
DX: R51.9 Headache, unspecified (principal); M54.2 Cervicalgia
CPT/HCPCS: 70551; 72141; 76376

== ENCOUNTER → 2020-11-12 08:45 | Outpatient (POV) | payer BC, SELFPAY | PROVIDERS: Visit Provider Dermatology | DX: Z00.00 Encounter for general adult medical examination without abnormal findings (principal) ==

== ENCOUNTER → 2020-11-14 13:38 | Outpatient (CLI) | payer BC, SELFPAY ==
[2020-11-19 01:08] LABS: ALT (SGPT) P5P 21 IU/L (0-40); AST (SGOT) P5P 34 IU/L (0-40); Alpha 2-Macroglobulins, Qn 204 mg/dL (110-276); Apolipoprotein A-1 212 mg/dL (116-209); Bilirubin, Total 0.4 mg/dL (0.0-1.2); Cholesterol, Total 230 mg/dL (100-199); Fibrosis Score 0.18 (0.00-0.21); GGT 124 IU/L (0-60); Glucose 99 mg/dL (65-99); Haptoglobin 124 mg/dL (33-346); NASH Score 0.25 (0.25); Steatosis Score 0.37 (0.00-0.30); Triglycerides 108 mg/dL (0-149)
== END ==
PROVIDERS: Visit Provider Physician Assistant
DX: F10.20 Alcohol dependence, uncomplicated (principal); R74.8 Abnormal levels of other serum enzymes

== ENCOUNTER → 2020-11-15 07:38 | Outpatient (CLI) | payer BC, SELFPAY ==
--- NOTE | 2020-11-15 07:38 | US_ITS ---
PROCEDURE: US LIVER CLINICAL INDICATION: Elevated liver enzymes COMPARISON: No exams were available for comparison FINDINGS: PANCREAS: Unremarkable. No obvious mass or abnormal fluid collection. No ductal dilatation LIVER: No focal liver lesions demonstrated. Homogeneous echogenicity. No intrahepatic biliary ductal dilatation evident. There is appropriate direction of blood flow within a non dilated portal vein RIGHT KIDNEY: Unremarkable. Normal size and echogenicity. No hydronephrosis GALLBLADDER: Prior cholecystectomy. Common bile duct is normal at 5 mm. IMPRESSION: Prior cholecystectomy otherwise negative Dictated by: Rey Soto MD 11/15/2020 15:48 Rey Soto MD in [place] 11/15/2020 15:48
== END ==
PROVIDERS: PCP Physician Assistant; Visit Provider Physician Assistant
DX: R74.8 Abnormal levels of other serum enzymes (principal); F10.20 Alcohol dependence, uncomplicated
CPT/HCPCS: 76705

== ENCOUNTER → 2020-12-04 12:41 | Outpatient (CLI) | payer BC, SELFPAY ==
--- NOTE | 2020-12-04 12:45 | XR_ITS ---
PROCEDURE: XR KNEE LT 4V CLINICAL INDICATION: LT knee pain COMPARISON: No exams were available for comparison FINDINGS: No fracture or dislocation. No lytic or blastic change. There is normal mineralization. The joint spaces are well-preserved. No significant degenerative/arthritic changes. No erosive changes evident. Other findings:Surgical clips are present at the distal thigh medially and proximal tibia posteriorly. IMPRESSION: No acute findings. Dictated by: Rey Soto MD 12/04/2020 16:58 Rey Soto MD in [place] 12/04/2020 16:58
--- NOTE | 2020-12-04 12:45 | XR_ITS ---
PROCEDURE: XR HIP LT 2-3V W/PELVIS CLINICAL INDICATION: LT hip pain COMPARISON: CT ABWWO CT ABD W/WO CONTRAST from 11/16/2014 CR,DX BONE3 BONE DENSITOMETRY(HIP:LT SPINE from 03/18/2015 FINDINGS: No fracture or dislocation. No lytic or blastic change. No significant degenerative change. There are clips present in the left inguinal area. There is some coarse calcification along the left superior pubic ramus and may be related to round ligament or vascular calcification. IMPRESSION: No acute findings. Dictated by: Rey Soto MD 12/04/2020 17:14 Rey Soto MD in [place] 12/04/2020 17:14
== END ==
PROVIDERS: PCP Physician Assistant; Visit Provider Orthopaedic Surgery
DX: M25.552 Pain in left hip (principal); M25.562 Pain in left knee
CPT/HCPCS: 73502; 73564

== ENCOUNTER → 2020-12-26 12:23 | Outpatient (CLI) | payer BC, SELFPAY | PROVIDERS: PCP Physician Assistant; Visit Provider Nurse Practitioner Family | DX: G47.33 Obstructive sleep apnea (adult) (pediatric) (principal); R06.81 Apnea, not elsewhere classified; R06.83 Snoring; G47.00 Insomnia, unspecified; R51.9 Headache, unspecified; G89.29 Other chronic pain | CPT/HCPCS: 95806 ==

== ENCOUNTER 2021-03-27 09:00 | Outpatient (RCR) | payer BC, SELFPAY ==
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
== END 2021-04-21 14:28 | disposition home or self-care (01) ==
LOC: PT.CARL 09:00
PROVIDERS: PCP Physician Assistant; Visit Provider Nurse Practitioner Family
DX: R51.9 Headache, unspecified (principal); M54.2 Cervicalgia; G89.29 Other chronic pain
CPT/HCPCS: 20560; 97010; 97014; 97033; 97035; 97110; 97140; 97163; 97164; G0283